=== PATIENT | male | born 1960 | race Caucasian/White ===

== ENCOUNTER 2017-12-06 07:08 | Day surgery (SDC) | payer OTHER ==
[2017-12-03 13:24] VITALS: BMI 31.3
[2017-12-06] MEDS ORDERED: LIDOCAINE HCL 2% (20ML MULTI-DOSE VIAL) NR ONE (08:07)
[2017-12-06] MEDS ORDERED: PROPOFOL 20 ML ONE ×2 (08:07)
[2017-12-06 08:46] VITALS: TEMP 97.9
[2017-12-06 09:34] VITALS: BP 130/78; PULSE 88
[2017-12-06 09:35] LABS: BASO % 0.7 % (0-2.0); EOS % 2.6 % (0-4.5); HEMATOCRIT 43.6 % (35.4-49); HEMOGLOBIN 14.8 GM/dL (11.7-16.9); MCH 27.8 pg (25.7-33.7); MCHC 33.8 g/dl (32.0-35.9); MEAN PLT VOLUME 8.8 fl (7.5-11.1); MONO % 8.1 % (3.8-10.2); NEUT % 68.6 % (42.8-82.8); PLATELET COUNT 303 K/MM3 (134-434); RBC 5.32 M/mm3 (4.00-5.60); RDW 12.9 % (11.9-15.9)
[2017-12-06] MEDS ORDERED: PANTOPRAZOLE 40 MG TABLET (FP) PO SCH (10:00)
[2017-12-06 10:33] LABS: INR 1.15 (0.82-1.09)
[2017-12-06 10:35] LABS: ALBUMIN 3.6 g/dl (3.4-5.0); ANION GAP 6 (8-16); BLOOD UREA NITROGEN 12 mg/dL (7-18); CALCIUM 8.8 mg/dL (8.5-10.1); CHLORIDE 102 mmol/L (98-107); CO2 32 mmol/L (21-32); GLUCOSE,RANDOM 103 mg/dL (74-106); POTASSIUM 3.7 mmol/L (3.5-5.1); SGOT/AST 19 U/L (15-37); SODIUM 140 mmol/L (136-145)
[2017-12-06 10:42] LABS: ALK PHOS 110 U/L (45-117); BILIRUBIN,TOTAL 0.8 mg/dL (0.2-1.0)
[2017-12-06 10:57] LABS: SGPT/ALT 18 U/L (12-78)
--- NOTE | 2017-12-07 11:52 | PATH ---
Surgical Pathology Report Patient Name: DUKE SWEENEY Med. Rec. #: [id number] /Age/Gender: 1960 (Age: 57) / M Account: [id number] Location: U-ENDOSCOPY Taken: 12/06/2017 Received: 12/06/2017 Reported: 12/07/2017 Physicians: Bishop Jimenez M.D. Specimen(s) Received A: BX ANTRUM B: BX DISTAL ESOPHAGEAL Clinical History Preoperative diagnosis: Dysphagia, weight loss Postoperative diagnosis: Antral gastritis, distal esophageal carcinoma, hiatal hernia Final Diagnosis A. STOMACH, ANTRUM, BIOPSY: MILD REACTIVE GASTROPATHY. IMMUNOSTAIN FOR H. PYLORI IS NEGATIVE. B. DISTAL ESOPHAGUS, BIOPSY: POORLY DIFFERENTIATED ADENOCARCINOMA. Comment: This case was discussed with Dr. Rothman at 11:40 AM on December 07, 2017. Assays for HER-2/pan, PD-L1, and mismatch repair protein analysis by immunohistochemistry are pending, and a report will follow. Electronically Signed Donell Mejia M.D. Addendum Reported: 12/09/2017 Addendum Diagnosis Results of Her2 (IHC) studies performed on block "B" at [place], [place] ([id number]) are as follows: Her2 IHC (EP3 from [employer], formerly known as [id number], using Tate Polymer Refine detection kit):3+ Positive PD-L1 (Keytruda) IHC, Clone 22C3 Pharm DX performed and interpreted at [place], [place] ([id number]) shows the following: RESULT: PD-L1 (Keytruda) CPS: 4 (PD-L1 Expression) Reference Range: CPS=Combined Positive Score ((#PD-L1 staining cells including tumor cells, lymphocytes and macrophages)/(Total # of viable tumor cells)) x 100 CPS <1 = No PD-L1 Expression CPS >= 1 up to maximum of 100: PD-L1 expression Immunohistochemical stains for MisMatch Repair Protein Analysis performed at [facility] in [place], [place] ([id number]) and interpreted at [facility] show the following: RESULTS: HMLH-1 INTACT NUCLEAR EXPRESSION HMSH-2 INTACT NUCLEAR EXPRESSION HMSH-6 INTACT NUCLEAR EXPRESSION PMS2 INTACT NUCLEAR EXPRESSION INTERPRETATION: No loss of nuclear expression of MMR proteins: low probability of microsatellite instability-high (MSI-H) Donell Mejia M.D. Gross Description A. Received in formalin, labeled "biopsy antrum" are 2 arevalo, irregular portions of soft tissue measuring 0.2 and 0.3 cm. in greatest dimension. The specimens are submitted in toto in one cassette. B. Received in formalin labeled "biopsy distal esophageal carcinoma," is a 0.7 x 0.4 x 0.2 cm aggregate of arevalo soft tissue fragments. The formalin is filtered and the specimen is entirely submitted in one cassette. 12/06/2017 [facility]12/06/2017
== END 2017-12-06 09:34 | disposition home or self-care (01) ==
LOC: JASU-ENDO 07:08
PROVIDERS: ATTEND Internal Medicine Gastroenterology
PROC: 0DB68ZX Excision of Stomach, Via Natural or Artificial Opening Endoscopic, Diagnostic (ICD-10-PCS; 2017-12-06)
PROC: 0DB38ZX Excision of Lower Esophagus, Via Natural or Artificial Opening Endoscopic, Diagnostic (ICD-10-PCS; principal; 2017-12-06 08:00)
DX: C15.5 Malignant neoplasm of lower third of esophagus (principal); R13.10 Dysphagia, unspecified; K29.70 Gastritis, unspecified, without bleeding; K44.9 Diaphragmatic hernia without obstruction or gangrene; E66.9 Obesity, unspecified; I10 Essential (primary) hypertension; G47.30 Sleep apnea, unspecified
CPT/HCPCS: 36415; 80053; 85025; 85610; 86140; 88305-TC; 88342-TC

== ENCOUNTER 2018-01-17 07:27 | Day surgery (SDC) | payer OTHER ==
[2018-01-17] MEDS ORDERED: PALONOSETRON HCL 0.25 MG/5 ML VIAL IVPUSH ONE (08:00)
[2018-01-17] MEDS ORDERED: DEXAMETHASONE INJECTION 20 MG, DIPHENHYDRAMINE 50 MG, RANITIDINE INJECTION 50 MG in SOD... IVPB ONE (08:00)
[2018-01-17] MEDS ORDERED: PACLITAXEL 102 MG in SODIUM CHLORIDE 250 ML IVPB ONE (08:30)
[2018-01-17] MEDS ORDERED: CARBOPLATIN IVPB ONE ×2 (09:30)
[2018-01-17] MEDS ORDERED: SODIUM CHLORIDE IVPB ONE ×2 (09:30)
[2018-01-17] MEDS ORDERED: SODIUM CHLORIDE 250 ML IV ONE (10:00)
[2018-01-17 11:02] LABS: BASO % 0.1 % (0-2.0); HEMATOCRIT 44.9 % (35.4-49); HEMOGLOBIN 15.1 GM/dL (11.7-16.9); LYMPH % 4.3 % (8-40); MCH 26.8 pg (25.7-33.7); MCHC 33.7 g/dl (32.0-35.9); MEAN CELL VOLUME 79.7 fl (80-96); MEAN PLT VOLUME 8.9 fl (7.5-11.1); MONO % 0.4 % (3.8-10.2); NEUT % 95.2 % (42.8-82.8); PLATELET COUNT 322 K/MM3 (134-434); RBC 5.63 M/mm3 (4.00-5.60); WHITE BLOOD COUNT 6.5 K/mm3 (4.0-10.0)
[2018-01-17 11:27] LABS: ALBUMIN 3.6 g/dl (3.4-5.0); ALK PHOS 113 U/L (45-117); ANION GAP 6 (8-16); BILIRUBIN,DIRECT 0.2 mg/dL (0.0-0.2); BLOOD UREA NITROGEN 13 mg/dL (7-18); CALCIUM 9.2 mg/dL (8.5-10.1); CHLORIDE 102 mmol/L (98-107); CO2 30 mmol/L (21-32); GLUCOSE,RANDOM 223 mg/dL (74-106); MAGNESIUM 2.1 mg/dL (1.8-2.4); POTASSIUM 4.1 mmol/L (3.5-5.1); SGOT/AST 17 U/L (15-37); SGPT/ALT 18 U/L (12-78); SODIUM 138 mmol/L (136-145); TOT PROT 7.4 g/dl (6.4-8.2)
[2018-01-17 18:53] VITALS: BP 129/76; PULSE 89; TEMP 98.2
== END 2018-01-17 16:30 | disposition home or self-care (01) ==
LOC: JONCCHEMO 07:27 → J7W 11:48 → JONCCHEMO 16:30
PROVIDERS: ATTEND Internal Medicine Hematology & Oncology
DX: Z51.11 Encounter for antineoplastic chemotherapy (principal); C15.9 Malignant neoplasm of esophagus, unspecified
CPT/HCPCS: 36415; 80053; 80076; 83735; 85025; 96361; 96367; 96375; 96413; 96417; J1100; J2469

== ENCOUNTER 2018-01-24 07:20 | Day surgery (SDC) | payer OTHER ==
[2018-01-24] MEDS ORDERED: PALONOSETRON HCL 0.25 MG/5 ML VIAL IVPUSH ONE (08:00)
[2018-01-24] MEDS ORDERED: DEXAMETHASONE INJECTION 20 MG, DIPHENHYDRAMINE 50 MG, RANITIDINE INJECTION 50 MG in SOD... IVPB ONE (08:00)
[2018-01-24] MEDS ORDERED: PACLITAXEL 102 MG in SODIUM CHLORIDE 250 ML IVPB ONE (08:30)
[2018-01-24] MEDS ORDERED: CARBOPLATIN IVPB ONE (09:30)
[2018-01-24] MEDS ORDERED: SODIUM CHLORIDE IVPB ONE (09:30)
[2018-01-24 09:34] LABS: BASO % 0.2 % (0-2.0); EOS % 0.2 % (0-4.5); HEMATOCRIT 46.8 % (35.4-49); HEMOGLOBIN 15.6 GM/dL (11.7-16.9); LYMPH % 3.9 % (8-40); MCH 26.6 pg (25.7-33.7); MCHC 33.3 g/dl (32.0-35.9); MEAN PLT VOLUME 8.8 fl (7.5-11.1); MONO % 0.8 % (3.8-10.2); NEUT % 94.9 % (42.8-82.8); PLATELET COUNT 289 K/MM3 (134-434); RBC 5.85 M/mm3 (4.00-5.60); RDW 12.9 % (11.9-15.9); WHITE BLOOD COUNT 4.5 K/mm3 (4.0-10.0)
[2018-01-24] MEDS ORDERED: SODIUM CHLORIDE 250 ML IV ONE (10:00)
[2018-01-24 10:09] LABS: ALBUMIN 3.8 g/dl (3.4-5.0); ANION GAP 7 (8-16); BILIRUBIN,DIRECT 0.3 mg/dL (0.0-0.2); BLOOD UREA NITROGEN 17 mg/dL (7-18); CALCIUM 9.1 mg/dL (8.5-10.1); CHLORIDE 100 mmol/L (98-107); CO2 30 mmol/L (21-32); CREATININE 1.1 mg/dL (0.7-1.3); GLUCOSE,RANDOM 149 mg/dL (74-106); MAGNESIUM 2.4 mg/dL (1.8-2.4); POTASSIUM 4.1 mmol/L (3.5-5.1); SGOT/AST 19 U/L (15-37); SGPT/ALT 21 U/L (12-78); SODIUM 137 mmol/L (136-145)
[2018-01-24 10:11] LABS: ALK PHOS 107 U/L (45-117); BILIRUBIN,TOTAL 1.4 mg/dL (0.2-1.0); TOT PROT 7.4 g/dl (6.4-8.2)
[2018-01-24 16:20] VITALS: BP 125/75; PULSE 78; TEMP 98
== END 2018-01-24 13:40 | disposition home or self-care (01) ==
LOC: JONCCHEMO 07:20 → J7W 10:03 → JONCCHEMO 13:40
PROVIDERS: ATTEND Internal Medicine Hematology & Oncology
DX: Z51.11 Encounter for antineoplastic chemotherapy (principal); C15.9 Malignant neoplasm of esophagus, unspecified
CPT/HCPCS: 36415; 80053; 80076; 83735; 85025; 96361; 96367; 96375; 96413; 96417; J1100; J2469

== ENCOUNTER 2018-02-01 07:58 | Day surgery (SDC) | payer OTHER ==
[2018-02-01] MEDS ORDERED: PALONOSETRON HCL 0.25 MG/5 ML VIAL IVPUSH ONE (08:00)
[2018-02-01] MEDS ORDERED: DEXAMETHASONE INJECTION 20 MG, DIPHENHYDRAMINE 50 MG, RANITIDINE INJECTION 50 MG in SOD... IVPB ONE (08:00)
[2018-02-01] MEDS ORDERED: PACLITAXEL 102 MG in SODIUM CHLORIDE 250 ML IVPB ONE (08:30)
[2018-02-01] MEDS ORDERED: SODIUM CHLORIDE IVPB ONE (09:30)
[2018-02-01] MEDS ORDERED: CARBOPLATIN IVPB ONE (09:30)
[2018-02-01 09:42] LABS: BASO % 0.6 % (0-2.0); EOS % 0.5 % (0-4.5); HEMATOCRIT 42.3 % (35.4-49); HEMOGLOBIN 14.7 GM/dL (11.7-16.9); LYMPH % 2.6 % (8-40); MCH 27.4 pg (25.7-33.7); MCHC 34.7 g/dl (32.0-35.9); MEAN CELL VOLUME 78.9 fl (80-96); MEAN PLT VOLUME 8.9 fl (7.5-11.1); MONO % 3.4 % (3.8-10.2); NEUT % 92.9 % (42.8-82.8); PLATELET COUNT 180 K/MM3 (134-434); RBC 5.36 M/mm3 (4.00-5.60); RDW 12.7 % (11.9-15.9); WHITE BLOOD COUNT 6.4 K/mm3 (4.0-10.0)
[2018-02-01] MEDS ORDERED: SODIUM CHLORIDE 250 ML IV ONE (10:00)
[2018-02-01 10:09] LABS: ALBUMIN 3.5 g/dl (3.4-5.0); ANION GAP 7 (8-16); BLOOD UREA NITROGEN 18 mg/dL (7-18); CALCIUM 8.6 mg/dL (8.5-10.1); CHLORIDE 99 mmol/L (98-107); CO2 31 mmol/L (21-32); CREATININE 0.9 mg/dL (0.7-1.3); GLUCOSE,RANDOM 109 mg/dL (74-106); POTASSIUM 3.2 mmol/L (3.5-5.1); SGOT/AST 27 U/L (15-37); SGPT/ALT 40 U/L (12-78); SODIUM 137 mmol/L (136-145)
[2018-02-01 10:11] LABS: ALK PHOS 100 U/L (45-117); BILIRUBIN,TOTAL 1.8 mg/dL (0.2-1.0); TOT PROT 6.7 g/dl (6.4-8.2)
[2018-02-01] MEDS ORDERED: POTASSIUM CHLORIDE TABS 20 MEQ TABLET.ER (FP) PO ONE (11:15)
[2018-02-01 11:30] LABS: BILIRUBIN,DIRECT 0.4 mg/dL (0.0-0.2); MAGNESIUM 2.2 mg/dL (1.8-2.4)
[2018-02-01 17:37] VITALS: TEMP 98.4
[2018-02-01 17:41] VITALS: BP 100/62; PULSE 80
== END 2018-02-01 15:00 | disposition home or self-care (01) ==
LOC: JONCCHEMO 07:58 → J7W 10:52 → JONCCHEMO 15:00
PROVIDERS: ATTEND Internal Medicine Hematology & Oncology
DX: Z51.11 Encounter for antineoplastic chemotherapy (principal); C15.9 Malignant neoplasm of esophagus, unspecified
CPT/HCPCS: 36415; 80053; 80076; 83735; 85025; 96361; 96375; 96413; 96417; J1100; J2469

== ENCOUNTER 2018-02-07 07:30 | Day surgery (SDC) | payer OTHER ==
[2018-02-07] MEDS ORDERED: DEXAMETHASONE INJECTION 20 MG, DIPHENHYDRAMINE 50 MG, RANITIDINE INJECTION 50 MG in SOD... IVPB ONE (08:00)
[2018-02-07] MEDS ORDERED: PACLITAXEL 102 MG in SODIUM CHLORIDE 250 ML IVPB ONE (08:30)
[2018-02-07] MEDS ORDERED: SODIUM CHLORIDE IVPB ONE (09:30)
[2018-02-07] MEDS ORDERED: CARBOPLATIN IVPB ONE (09:30)
[2018-02-07 09:57] LABS: BASO % 0.5 % (0-2.0); EOS % 0.4 % (0-4.5); HEMATOCRIT 42.4 % (35.4-49); HEMOGLOBIN 14.4 GM/dL (11.7-16.9); LYMPH % 2.7 % (8-40); MCH 27.1 pg (25.7-33.7); MEAN CELL VOLUME 79.8 fl (80-96); MONO % 4.5 % (3.8-10.2); NEUT % 91.9 % (42.8-82.8); PLATELET COUNT 214 K/MM3 (134-434); RBC 5.31 M/mm3 (4.00-5.60); WHITE BLOOD COUNT 4.6 K/mm3 (4.0-10.0)
[2018-02-07] MEDS ORDERED: SODIUM CHLORIDE 250 ML IV ONE (10:00)
[2018-02-07 10:59] LABS: ALBUMIN 3.3 g/dl (3.4-5.0); ANION GAP 6 (8-16); BLOOD UREA NITROGEN 17 mg/dL (7-18); CALCIUM 8.7 mg/dL (8.5-10.1); CHLORIDE 100 mmol/L (98-107); CO2 31 mmol/L (21-32); GLUCOSE,RANDOM 105 mg/dL (74-106); POTASSIUM 3.9 mmol/L (3.5-5.1); SODIUM 137 mmol/L (136-145)
[2018-02-07 11:03] LABS: ALK PHOS 90 U/L (45-117); BILIRUBIN,DIRECT 0.3 mg/dL (0.0-0.2); BILIRUBIN,TOTAL 1.3 mg/dL (0.2-1.0); CREATININE 0.9 mg/dL (0.7-1.3); SGOT/AST 29 U/L (15-37); SGPT/ALT 37 U/L (12-78); TOT PROT 6.6 g/dl (6.4-8.2)
[2018-02-07] MEDS: PALONOSETRON HCL 0.25 MG/5 ML VIAL IVPUSH ONE ×2 (11:15→11:17)
[2018-02-07 15:28] VITALS: TEMP 98.1
[2018-02-07 15:30] VITALS: BP 115/76; PULSE 93
[2018-02-07 16:45] LABS: URINE APPEARANCE CLEAR; URINE BILIRUBIN NEGATIVE (<2.0 mg/dL); URINE BLOOD NEGATIVE (NEGATIVE); URINE COLOR YELLOW; URINE GLUCOSE (UA) NEGATIVE (NEGATIVE); URINE KETONE NEGATIVE (NEGATIVE); URINE LEUK ESTERASE NEGATIVE (NEGATIVE); URINE NITRITE NEGATIVE (NEGATIVE); URINE PROTEIN NEGATIVE (NEGATIVE); URINE UROBILINOGEN NEGATIVE mg/dL (0.2-1.0)
== END 2018-02-07 15:20 | disposition home or self-care (01) ==
LOC: JONCCHEMO 07:30 → J7W 11:05 → JONCCHEMO 15:20
PROVIDERS: ATTEND Internal Medicine Hematology & Oncology
PROC: 3E03305 Introduction of Other Antineoplastic into Peripheral Vein, Percutaneous Approach (ICD-10-PCS; principal; 2018-02-07)
PROC: 3E033GC Introduction of Other Therapeutic Substance into Peripheral Vein, Percutaneous Approach (ICD-10-PCS; 2018-02-07)
PROC: 3E0337Z Introduction of Electrolytic and Water Balance Substance into Peripheral Vein, Percutaneous Approach (ICD-10-PCS; 2018-02-07)
DX: Z51.11 Encounter for antineoplastic chemotherapy (principal); C15.5 Malignant neoplasm of lower third of esophagus; K21.9 Gastro-esophageal reflux disease without esophagitis; E78.00 Pure hypercholesterolemia, unspecified; I10 Essential (primary) hypertension; L40.9 Psoriasis, unspecified
CPT/HCPCS: 36415; 80053; 80076; 81003; 83735; 85025; 87040; 87086; 96361; 96367; 96375; 96413; 96417; J1100; J2469

== ENCOUNTER 2018-02-14 07:27 | Day surgery (SDC) | payer OTHER ==
[2018-02-14 09:04] LABS: BASO % 0.9 % (0-2.0); EOS % 1.1 % (0-4.5); HEMATOCRIT 40.9 % (35.4-49); HEMOGLOBIN 14.1 GM/dL (11.7-16.9); LYMPH % 8.4 % (8-40); MCH 27.4 pg (25.7-33.7); MCHC 34.4 g/dl (32.0-35.9); MEAN CELL VOLUME 79.6 fl (80-96); MEAN PLT VOLUME 8.3 fl (7.5-11.1); MONO % 11.4 % (3.8-10.2); NEUT % 78.2 % (42.8-82.8); PLATELET COUNT 186 K/MM3 (134-434); RBC 5.14 M/mm3 (4.00-5.60); RDW 12.9 % (11.9-15.9); WHITE BLOOD COUNT 3.5 K/mm3 (4.0-10.0)
[2018-02-14] MEDS ORDERED: DEXAMETHASONE INJECTION 20 MG, DIPHENHYDRAMINE 50 MG, RANITIDINE INJECTION 50 MG in SOD... IVPB ONE (10:00)
[2018-02-14] MEDS ORDERED: PALONOSETRON HCL 0.25 MG/5 ML VIAL IVPUSH ONE (10:00)
[2018-02-14 10:01] LABS: BILIRUBIN,TOTAL 0.9 mg/dL (0.2-1.0); CHLORIDE 103 mmol/L (98-107); SODIUM 141 mmol/L (136-145); TOT PROT 6.7 g/dl (6.4-8.2)
[2018-02-14 10:19] LABS: ALBUMIN 3.4 g/dl (3.4-5.0); ALK PHOS 102 U/L (45-117); ANION GAP 7 (8-16); BILIRUBIN,DIRECT 0.3 mg/dL (0.0-0.2); BLOOD UREA NITROGEN 17 mg/dL (7-18); CO2 31 mmol/L (21-32); CREATININE 0.9 mg/dL (0.7-1.3); GLUCOSE,RANDOM 91 mg/dL (74-106); SGOT/AST 35 U/L (15-37); SGPT/ALT 57 U/L (12-78)
[2018-02-14 10:28] VITALS: TEMP 98
[2018-02-14] MEDS ORDERED: PACLITAXEL 102 MG in SODIUM CHLORIDE 250 ML IVPB ONE (10:30)
[2018-02-14] MEDS ORDERED: SODIUM CHLORIDE IVPB ONE (11:30)
[2018-02-14] MEDS ORDERED: CARBOPLATIN IVPB ONE (11:30)
[2018-02-14] MEDS ORDERED: SODIUM CHLORIDE 250 ML IV ONE (12:00)
[2018-02-14 15:51] VITALS: BP 99/62; PULSE 75
== END 2018-02-14 13:40 | disposition home or self-care (01) ==
LOC: JONCCHEMO 07:27 → J7W 10:00 → JONCCHEMO 13:40
PROVIDERS: ATTEND Internal Medicine Hematology & Oncology
DX: Z51.11 Encounter for antineoplastic chemotherapy (principal); C15.5 Malignant neoplasm of lower third of esophagus
CPT/HCPCS: 36415; 80048; 80076; 83735; 85025; 96361; 96367; 96375; 96413; 96417; J1100; J2469

== ENCOUNTER 2019-02-01 07:23 | Day surgery (SDC) | payer OTHER ==
[2019-01-31 18:23] VITALS: BMI 27.6
[2019-02-01 07:55] LABS: BASO % 0.8 % (0-2.0); EOS % 2.7 % (0-4.5); HEMATOCRIT 42.5 % (35.4-49); HEMOGLOBIN 14.1 GM/dL (11.7-16.9); MCH 27.8 pg (25.7-33.7); MCHC 33.2 g/dl (32.0-35.9); MEAN CELL VOLUME 83.6 fl (80-96); MEAN PLT VOLUME 8.5 fl (7.5-11.1); MONO % 9.8 % (3.8-10.2); NEUT % 76.7 % (42.8-82.8); PLATELET COUNT 208 K/MM3 (134-434); RBC 5.09 M/mm3 (4.00-5.60); RDW 12.6 % (11.9-15.9); WHITE BLOOD COUNT 7.4 K/mm3 (4.0-10.0)
[2019-02-01 08:09] LABS: INR 1.08 (0.83-1.09); PROTHROMBIN TIME (PATIENT) 12.7 SEC (9.7-13.0)
[2019-02-01 12:18] VITALS: BP 138/80; PULSE 70; TEMP 98.7
== END 2019-02-01 12:21 | disposition home or self-care (01) ==
LOC: JRADIR 07:23
PROVIDERS: ATTEND Internal Medicine Hematology & Oncology
PROC: 02HV33Z Insertion of Infusion Device into Superior Vena Cava, Percutaneous Approach (ICD-10-PCS; principal; 2019-02-01)
PROC: B518ZZA Fluoroscopy of Superior Vena Cava, Guidance (ICD-10-PCS; 2019-02-01)
DX: C15.9 Malignant neoplasm of esophagus, unspecified (principal)
CPT/HCPCS: 36561; C1788; 36415; 85025; 85610

== ENCOUNTER 2019-02-02 06:19 | Day surgery (SDC) | payer OTHER ==
[2019-02-02 09:45] LABS: BASO % 0.2 % (0-2.0); EOS % 0.1 % (0-4.5); HEMATOCRIT 45.6 % (35.4-49); HEMOGLOBIN 15.1 GM/dL (11.7-16.9); LYMPH % 7.1 % (8-40); MCH 27.8 pg (25.7-33.7); MCHC 33.2 g/dl (32.0-35.9); MEAN CELL VOLUME 83.8 fl (80-96); MEAN PLT VOLUME 8.9 fl (7.5-11.1); MONO % 0.3 % (3.8-10.2); NEUT % 92.3 % (42.8-82.8); PLATELET COUNT 229 K/MM3 (134-434); RBC 5.44 M/mm3 (4.00-5.60); RDW 12.6 % (11.9-15.9); WHITE BLOOD COUNT 5.4 K/mm3 (4.0-10.0)
[2019-02-02] MEDS ORDERED: DEXAMETHASONE SODIUM PHOSPHATE 20 MG, DIPHENHYDRAMINE 50 MG, RANITIDINE INJECTION 50 MG... IVPB ONE (10:00)
[2019-02-02] MEDS ORDERED: PALONOSETRON HCL 0.25 MG/5 ML VIAL IVPUSH ONE (10:00)
[2019-02-02 10:16] LABS: ALBUMIN 3.6 g/dl (3.4-5.0); BILIRUBIN,DIRECT 0.2 mg/dL (0.0-0.2); BILIRUBIN,TOTAL 0.7 mg/dL (0.2-1); CALCIUM 9.2 mg/dL (8.5-10.1); MAGNESIUM 2.4 mg/dL (1.8-2.4); POTASSIUM 4.7 mmol/L (3.5-5.1)
[2019-02-02] MEDS ORDERED: PACLITAXEL 156 MG in SODIUM CHLORIDE 250 ML IVPB ONE (10:30)
[2019-02-02] MEDS ORDERED: SODIUM CHLORIDE IVPB ONE (11:30)
[2019-02-02] MEDS ORDERED: CARBOPLATIN IVPB ONE (11:30)
[2019-02-02 12:10] LABS: ANISOCYTOSIS 0; MACROCYTOSIS 0; PLATELET ESTIMATE NORMAL
[2019-02-02] MEDS ORDERED: INSULIN (NOVOLOG) ASPART 100 UNITS/ML 10ML VIAL SQ ONE (14:15)
[2019-02-02] MEDS ORDERED: INSULIN SLIDING SCALE (NOVOLOG) 1 VIAL SQ ONE (14:15)
[2019-02-02] MEDS ORDERED: PORTA CATH FLUSH 10 ML IVPUSH ONE (16:35)
[2019-02-02 16:36] VITALS: BP 124/79; PULSE 78
[2019-02-02 16:55] VITALS: TEMP 98.5
== END 2019-02-02 14:40 | disposition home or self-care (01) ==
LOC: JONCCHEMO 06:19 → J7W 09:48 → JONCCHEMO 14:40
PROVIDERS: ATTEND Internal Medicine Hematology & Oncology
DX: Z51.11 Encounter for antineoplastic chemotherapy (principal); C15.5 Malignant neoplasm of lower third of esophagus
CPT/HCPCS: 36415; 80048; 80076; 82962; 83735; 85025; 96367; 96375; 96413; 96417; J2469

== ENCOUNTER 2019-02-09 07:19 | Day surgery (SDC) | payer OTHER ==
[2019-02-09] MEDS ORDERED: PALONOSETRON HCL 0.25 MG/5 ML VIAL IVPUSH ONE (10:00)
[2019-02-09] MEDS ORDERED: DEXAMETHASONE SODIUM PHOSPHATE 20 MG, DIPHENHYDRAMINE 50 MG, RANITIDINE INJECTION 50 MG... IVPB ONE (10:00)
[2019-02-09 10:13] LABS: BASO % 0.2 % (0-2.0); EOS % 0.4 % (0-4.5); HEMATOCRIT 41.8 % (35.4-49); LYMPH % 5.2 % (8-40); MCH 27.6 pg (25.7-33.7); MCHC 33.5 g/dl (32.0-35.9); MEAN CELL VOLUME 82.3 fl (80-96); NEUT % 93.2 % (42.8-82.8); PLATELET COUNT 207 K/MM3 (134-434); RBC 5.07 M/mm3 (4.00-5.60); RDW 12.8 % (11.9-15.9); WHITE BLOOD COUNT 6.9 K/mm3 (4.0-10.0)
[2019-02-09] MEDS ORDERED: PACLITAXEL 156 MG in SODIUM CHLORIDE 250 ML IVPB ONE (10:30)
[2019-02-09 10:48] LABS: ALBUMIN 3.7 g/dl (3.4-5.0); BILIRUBIN,DIRECT 0.1 mg/dL (0.0-0.2); BILIRUBIN,TOTAL 0.8 mg/dL (0.2-1); CREATININE 0.8 mg/dL (0.55-1.3); MAGNESIUM 2.4 mg/dL (1.8-2.4); POTASSIUM 4.6 mmol/L (3.5-5.1); TOT PROT 7.1 g/dl (6.4-8.2)
[2019-02-09 11:08] LABS: ANISOCYTOSIS 0; MACROCYTOSIS 0; PLATELET ESTIMATE NORMAL
[2019-02-09] MEDS ORDERED: SODIUM CHLORIDE IVPB ONE (11:30)
[2019-02-09] MEDS ORDERED: CARBOPLATIN IVPB ONE (11:30)
[2019-02-09 19:09] VITALS: BP 132/80; PULSE 72; TEMP 98.5
== END 2019-02-09 14:30 | disposition home or self-care (01) ==
LOC: JONCCHEMO 07:19 → J7W 11:12 → JONCCHEMO 14:30
PROVIDERS: ATTEND Internal Medicine Hematology & Oncology
DX: Z51.11 Encounter for antineoplastic chemotherapy (principal); C15.5 Malignant neoplasm of lower third of esophagus
CPT/HCPCS: 36415; 80048; 80076; 83735; 85025; 96367; 96375; 96413; 96417; J2469

== ENCOUNTER 2019-02-16 05:47 | Day surgery (SDC) | payer OTHER ==
[2019-02-16] MEDS ORDERED: DEXAMETHASONE SODIUM PHOSPHATE 10 MG, DIPHENHYDRAMINE 50 MG, RANITIDINE INJECTION 50 MG... IVPB ONE (09:00)
[2019-02-16] MEDS ORDERED: DEXAMETHASONE SODIUM PHOSPHATE 20 MG, DIPHENHYDRAMINE 50 MG, RANITIDINE INJECTION 50 MG... IVPB ONE (09:00)
[2019-02-16] MEDS ORDERED: PALONOSETRON HCL 0.25 MG/5 ML VIAL IVPUSH ONE (09:00)
[2019-02-16] MEDS ORDERED: PACLITAXEL 156 MG in SODIUM CHLORIDE 250 ML IVPB ONE (09:30)
[2019-02-16 09:49] LABS: BASO % 0.8 % (0-2.0); EOS % 1.6 % (0-4.5); HEMATOCRIT 41.6 % (35.4-49); HEMOGLOBIN 13.9 GM/dL (11.7-16.9); LYMPH % 16.2 % (8-40); MCH 27.5 pg (25.7-33.7); MCHC 33.4 g/dl (32.0-35.9); MEAN CELL VOLUME 82.2 fl (80-96); MEAN PLT VOLUME 8.7 fl (7.5-11.1); MONO % 8.8 % (3.8-10.2); NEUT % 72.6 % (42.8-82.8); RBC 5.06 M/mm3 (4.00-5.60); RDW 12.5 % (11.9-15.9); WHITE BLOOD COUNT 3.8 K/mm3 (4.0-10.0)
[2019-02-16 09:58] LABS: PLATELET COUNT 248 K/MM3 (134-434)
[2019-02-16 10:14] LABS: ALBUMIN 3.8 g/dl (3.4-5.0); BILIRUBIN,DIRECT 0.1 mg/dL (0.0-0.2); BILIRUBIN,TOTAL 0.7 mg/dL (0.2-1); BLOOD UREA NITROGEN 19.3 mg/dL (7-18); CALCIUM 9.1 mg/dL (8.5-10.1); CREATININE 0.9 mg/dL (0.55-1.3); MAGNESIUM 2.3 mg/dL (1.8-2.4); POTASSIUM 4.6 mmol/L (3.5-5.1); TOT PROT 6.9 g/dl (6.4-8.2)
[2019-02-16] MEDS ORDERED: CARBOPLATIN IVPB ONE (10:30)
[2019-02-16] MEDS ORDERED: SODIUM CHLORIDE IVPB ONE (10:30)
[2019-02-16 17:25] VITALS: TEMP 97
[2019-02-16 17:36] VITALS: BP 121/79; PULSE 72
[2019-02-16] MEDS ORDERED: PORTA CATH FLUSH 10 ML IVPUSH ONE (17:36)
== END 2019-02-16 13:50 | disposition home or self-care (01) ==
LOC: JONCCHEMO 05:47 → J7W 10:05 → JONCCHEMO 13:50
PROVIDERS: ATTEND Internal Medicine Hematology & Oncology
DX: Z51.11 Encounter for antineoplastic chemotherapy (principal); C15.5 Malignant neoplasm of lower third of esophagus
CPT/HCPCS: 36415; 80048; 80076; 83735; 85025; 96367; 96375; 96413; 96417; J2469

== ENCOUNTER 2019-02-23 06:37 | Day surgery (SDC) | payer OTHER ==
[2019-02-23] MEDS ORDERED: DEXAMETHASONE SODIUM PHOSPHATE 20 MG, DIPHENHYDRAMINE 50 MG, RANITIDINE INJECTION 50 MG... IVPB ONE (09:00)
[2019-02-23] MEDS ORDERED: PALONOSETRON HCL 0.25 MG/5 ML VIAL IVPUSH ONE (09:00)
[2019-02-23 09:01] LABS: BASO % 1.1 % (0-2.0); EOS % 1.3 % (0-4.5); HEMATOCRIT 39.2 % (35.4-49); HEMOGLOBIN 13.3 GM/dL (11.7-16.9); LYMPH % 18.6 % (8-40); MCH 27.9 pg (25.7-33.7); MEAN CELL VOLUME 81.9 fl (80-96); MEAN PLT VOLUME 8.4 fl (7.5-11.1); MONO % 9.7 % (3.8-10.2); NEUT % 69.3 % (42.8-82.8); PLATELET COUNT 241 K/MM3 (134-434); RBC 4.78 M/mm3 (4.00-5.60); RDW 12.8 % (11.9-15.9); WHITE BLOOD COUNT 4.3 K/mm3 (4.0-10.0)
[2019-02-23] MEDS ORDERED: PACLITAXEL 156 MG in SODIUM CHLORIDE 250 ML IVPB ONE (09:30)
[2019-02-23 09:32] LABS: ALBUMIN 3.6 g/dl (3.4-5.0); BILIRUBIN,DIRECT 0.1 mg/dL (0.0-0.2); BILIRUBIN,TOTAL 0.6 mg/dL (0.2-1); BLOOD UREA NITROGEN 17.5 mg/dL (7-18); CREATININE 0.9 mg/dL (0.55-1.3); MAGNESIUM 2.3 mg/dL (1.8-2.4); POTASSIUM 4.4 mmol/L (3.5-5.1); TOT PROT 6.6 g/dl (6.4-8.2)
[2019-02-23] MEDS ORDERED: CARBOPLATIN IVPB ONE (10:30)
[2019-02-23] MEDS ORDERED: SODIUM CHLORIDE IVPB ONE (10:30)
[2019-02-23 16:01] VITALS: BP 126/72; TEMP 98.5
[2019-02-23 16:15] VITALS: PULSE 60
[2019-02-23] MEDS ORDERED: PORTA CATH FLUSH 10 ML IVPUSH ONE (16:15)
== END 2019-02-23 13:15 | disposition home or self-care (01) ==
LOC: JONCCHEMO 06:37 → J7W 10:09 → JONCCHEMO 13:15
PROVIDERS: ATTEND Internal Medicine Hematology & Oncology
DX: Z51.11 Encounter for antineoplastic chemotherapy (principal); C15.5 Malignant neoplasm of lower third of esophagus
CPT/HCPCS: 36415; 80048; 80076; 83735; 85025; 96367; 96375; 96413; 96417; J2469

== ENCOUNTER 2019-03-02 07:18 | Day surgery (SDC) | payer OTHER ==
[2019-03-02] MEDS ORDERED: DEXAMETHASONE SODIUM PHOSPHATE 20 MG, DIPHENHYDRAMINE 50 MG, RANITIDINE INJECTION 50 MG... IVPB ONE (09:00)
[2019-03-02] MEDS ORDERED: PALONOSETRON HCL 0.25 MG/5 ML VIAL IVPUSH ONE (09:00)
[2019-03-02] MEDS ORDERED: PACLITAXEL 156 MG in SODIUM CHLORIDE 250 ML IVPB ONE (09:30)
[2019-03-02 09:39] LABS: BASO % 1.1 % (0-2.0); HEMATOCRIT 37.2 % (35.4-49); HEMOGLOBIN 12.7 GM/dL (11.7-16.9); MCHC 34.2 g/dl (32.0-35.9); MEAN CELL VOLUME 81.9 fl (80-96); MEAN PLT VOLUME 8.7 fl (7.5-11.1); MONO % 7.2 % (3.8-10.2); NEUT % 69.7 % (42.8-82.8); PLATELET COUNT 186 K/MM3 (134-434); RBC 4.55 M/mm3 (4.00-5.60); RDW 12.9 % (11.9-15.9); WHITE BLOOD COUNT 4.2 K/mm3 (4.0-10.0)
[2019-03-02 10:04] LABS: ALBUMIN 3.7 g/dl (3.4-5.0); BILIRUBIN,DIRECT 0.1 mg/dL (0.0-0.2); BILIRUBIN,TOTAL 0.6 mg/dL (0.2-1); BLOOD UREA NITROGEN 17.3 mg/dL (7-18); CREATININE 0.9 mg/dL (0.55-1.3); POTASSIUM 4.8 mmol/L (3.5-5.1); TOT PROT 6.8 g/dl (6.4-8.2); URIC ACID 5.2 mg/dL (2.6-7.2)
[2019-03-02] MEDS ORDERED: SODIUM CHLORIDE IVPB ONE (10:30)
[2019-03-02] MEDS ORDERED: CARBOPLATIN IVPB ONE (10:30)
[2019-03-02 15:50] VITALS: TEMP 98.8
[2019-03-02] MEDS ORDERED: PORTA CATH FLUSH 10 ML IVPUSH ONE (15:50)
[2019-03-02 15:51] VITALS: BP 129/77; PULSE 69
== END 2019-03-02 13:45 | disposition home or self-care (01) ==
LOC: JONCCHEMO 07:18 → J7W 10:07 → JONCCHEMO 13:45
PROVIDERS: ATTEND Internal Medicine Hematology & Oncology
DX: Z51.11 Encounter for antineoplastic chemotherapy (principal); C15.5 Malignant neoplasm of lower third of esophagus
CPT/HCPCS: 36415; 80048; 80076; 84550; 85025; 96367; 96375; 96413; 96417; J2469

== ENCOUNTER 2019-03-08 07:18 | Day surgery (SDC) | payer OTHER ==
[2019-03-08] MEDS ORDERED: PALONOSETRON HCL 0.25 MG/5 ML VIAL IVPUSH ONE (09:00)
[2019-03-08] MEDS ORDERED: DEXAMETHASONE SODIUM PHOSPHATE 20 MG, DIPHENHYDRAMINE 50 MG, RANITIDINE INJECTION 50 MG... IVPB ONE (09:00)
[2019-03-08] MEDS ORDERED: PACLITAXEL 156 MG in SODIUM CHLORIDE 250 ML IVPB ONE (09:30)
[2019-03-08] MEDS ORDERED: SODIUM CHLORIDE IVPB ONE (10:30)
[2019-03-08] MEDS ORDERED: CARBOPLATIN IVPB ONE (10:30)
[2019-03-08 11:03] LABS: CALCIUM 8.6 mg/dL (8.5-10.1); CREATININE 0.8 mg/dL (0.55-1.3); POTASSIUM 4.3 mmol/L (3.5-5.1)
[2019-03-08 11:27] LABS: ALBUMIN 3.4 g/dl (3.4-5.0); BILIRUBIN,DIRECT 0.2 mg/dL (0.0-0.2); BILIRUBIN,TOTAL 0.9 mg/dL (0.2-1); MAGNESIUM 2.1 mg/dL (1.8-2.4); TOT PROT 6.2 g/dl (6.4-8.2)
[2019-03-08 16:35] VITALS: TEMP 98.4
[2019-03-08] MEDS ORDERED: PORTA CATH FLUSH 10 ML IVPUSH ONE (16:44)
[2019-03-08 17:01] VITALS: BP 141/93; PULSE 96
== END 2019-03-08 14:35 | disposition home or self-care (01) ==
LOC: JONCCHEMO 07:18 → J7W 09:45 → JONCCHEMO 14:35
PROVIDERS: ATTEND Internal Medicine Hematology & Oncology
DX: Z51.11 Encounter for antineoplastic chemotherapy (principal); C15.5 Malignant neoplasm of lower third of esophagus
CPT/HCPCS: 36415; 80048; 80076; 82378; 83735; 96367; 96375; 96413; 96417; J2469

== ENCOUNTER 2019-04-04 05:58 | Day surgery (SDC) | payer OTHER ==
[2019-04-04 09:00] LABS: BASO % 1.1 % (0-2.0); EOS % 1.9 % (0-4.5); HEMATOCRIT 37.6 % (35.4-49); LYMPH % 19.4 % (8-40); MCH 29.5 pg (25.7-33.7); MCHC 34.5 g/dl (32.0-35.9); MEAN CELL VOLUME 85.4 fl (80-96); MEAN PLT VOLUME 8.1 fl (7.5-11.1); MONO % 10.4 % (3.8-10.2); NEUT % 67.2 % (42.8-82.8); PLATELET COUNT 211 K/MM3 (134-434); RBC 4.41 M/mm3 (4.00-5.60); RDW 19.1 % (11.9-15.9)
[2019-04-04 09:28] LABS: ALBUMIN 3.5 g/dl (3.4-5.0); BILIRUBIN,DIRECT 0.2 mg/dL (0.0-0.2); BILIRUBIN,TOTAL 0.7 mg/dL (0.2-1); BLOOD UREA NITROGEN 18.1 mg/dL (7-18); CREATININE 0.8 mg/dL (0.55-1.3); MAGNESIUM 2.3 mg/dL (1.8-2.4); TOT PROT 6.5 g/dl (6.4-8.2)
[2019-04-04] MEDS ORDERED: PALONOSETRON HCL 0.25 MG/5 ML VIAL IVPUSH ONE (10:00)
[2019-04-04] MEDS ORDERED: DEXAMETHASONE SODIUM PHOSPHATE 20 MG in SODIUM CHLORIDE 50 ML IVPB ONE (10:00)
[2019-04-04] MEDS ORDERED: OXALIPLATIN 160 MG in DEXTROSE 5%-WATER - 500 ML IV ONE (10:30)
[2019-04-04] MEDS ORDERED: DEXTROSE 5% IVPB ONE (10:30)
[2019-04-04] MEDS ORDERED: WATER IVPB ONE (10:30)
[2019-04-04] MEDS ORDERED: LEUCOVORIN IVPB ONE (10:30)
[2019-04-04] MEDS ORDERED: FLUOROURACIL 2,500 MG/50 ML VIAL IVPUSH ONE (12:30)
[2019-04-04] MEDS ORDERED: FLUOROURACIL 3,000 MG in SODIUM CHLORIDE 32 ML CP ONE (12:45)
[2019-04-04 16:48] VITALS: BP 138/90; PULSE 92; TEMP 98.2
== END 2019-04-04 15:10 | disposition home or self-care (01) ==
LOC: JONCCHEMO 05:58 → J7W 10:29 → JONCCHEMO 15:10
PROVIDERS: ATTEND Internal Medicine Hematology & Oncology
PROC: 3E04305 Introduction of Other Antineoplastic into Central Vein, Percutaneous Approach (ICD-10-PCS; principal; 2019-04-04)
PROC: 3E04305 Introduction of Other Antineoplastic into Central Vein, Percutaneous Approach (ICD-10-PCS; 2019-04-04)
PROC: 3E043GC Introduction of Other Therapeutic Substance into Central Vein, Percutaneous Approach (ICD-10-PCS; 2019-04-04)
DX: Z51.11 Encounter for antineoplastic chemotherapy (principal); C15.5 Malignant neoplasm of lower third of esophagus; I10 Essential (primary) hypertension; E78.00 Pure hypercholesterolemia, unspecified; L40.9 Psoriasis, unspecified; K21.9 Gastro-esophageal reflux disease without esophagitis
CPT/HCPCS: 36415; 80048; 80076; 83735; 85025; 96366; 96367; 96375; 96409; 96413; 96415; 96417; G0498; J2469; J9263

== ENCOUNTER 2019-04-06 05:40 | Day surgery (SDC) | payer OTHER ==
[2019-04-06 16:33] VITALS: BP 136/72; PULSE 80; TEMP 97.6
[2019-04-06] MEDS ORDERED: PORTA CATH FLUSH 10 ML IVPUSH ONE (16:33)
== END 2019-04-06 13:45 | disposition home or self-care (01) ==
LOC: JONCCHEMO 05:40 → J7W 12:35 → JONCCHEMO 13:45
PROVIDERS: ATTEND Internal Medicine Hematology & Oncology
PROC: 2W54XYZ Removal of Other Device on Chest Wall (ICD-10-PCS; principal; 2019-04-06)
DX: Z53.8 Procedure and treatment not carried out for other reasons (principal)

== ENCOUNTER 2019-04-18 07:20 | Day surgery (SDC) | payer OTHER ==
[2019-04-18 08:55] LABS: BASO % 0.7 % (0-2.0); HEMATOCRIT 36.4 % (35.4-49); HEMOGLOBIN 12.6 GM/dL (11.7-16.9); LYMPH % 17.6 % (8-40); MCHC 34.7 g/dl (32.0-35.9); MEAN CELL VOLUME 86.5 fl (80-96); MEAN PLT VOLUME 7.6 fl (7.5-11.1); MONO % 13.2 % (3.8-10.2); NEUT % 64.5 % (42.8-82.8); PLATELET COUNT 187 K/MM3 (134-434); RBC 4.21 M/mm3 (4.00-5.60); RDW 18.5 % (11.9-15.9); WHITE BLOOD COUNT 4.2 K/mm3 (4.0-10.0)
[2019-04-18 09:21] LABS: ALBUMIN 3.6 g/dl (3.4-5.0); BILIRUBIN,DIRECT 0.2 mg/dL (0.0-0.2); BILIRUBIN,TOTAL 0.6 mg/dL (0.2-1); BLOOD UREA NITROGEN 16.7 mg/dL (7-18); MAGNESIUM 2.3 mg/dL (1.8-2.4); POTASSIUM 4.4 mmol/L (3.5-5.1); TOT PROT 6.7 g/dl (6.4-8.2)
[2019-04-18] MEDS ORDERED: DEXAMETHASONE SODIUM PHOSPHATE 20 MG in SODIUM CHLORIDE 50 ML IVPB ONE (09:30)
[2019-04-18] MEDS ORDERED: PALONOSETRON HCL 0.25 MG/5 ML VIAL IVPUSH ONE (09:30)
[2019-04-18] MEDS ORDERED: LEUCOVORIN IVPB ONE (10:00)
[2019-04-18] MEDS ORDERED: OXALIPLATIN 160 MG in DEXTROSE 5%-WATER - 500 ML IV ONE (10:00)
[2019-04-18] MEDS ORDERED: DEXTROSE 5% IVPB ONE (10:00)
[2019-04-18] MEDS ORDERED: WATER IVPB ONE (10:00)
[2019-04-18] MEDS ORDERED: FLUOROURACIL 500 MG/10 ML VIAL IVPUSH ONE (12:00)
[2019-04-18] MEDS ORDERED: FLUOROURACIL 3,000 MG in SODIUM CHLORIDE 32 ML CP ONE (12:15)
[2019-04-18 15:40] VITALS: BP 144/90; PULSE 73; TEMP 97.7
== END 2019-04-18 14:45 | disposition home or self-care (01) ==
LOC: JONCCHEMO 07:20 → JERBED 10:45 → J7W 10:46 → JONCCHEMO 14:45
PROVIDERS: ATTEND Internal Medicine Hematology & Oncology
DX: Z51.11 Encounter for antineoplastic chemotherapy (principal); C15.5 Malignant neoplasm of lower third of esophagus
CPT/HCPCS: 36415; 80048; 80076; 83735; 85025; 96366; 96367; 96375; 96409; 96411; 96413; 96415; 96417; G0498; J2469; J9190; J9263

== ENCOUNTER 2019-04-20 07:23 | Day surgery (SDC) | payer OTHER ==
[2019-04-20 18:02] VITALS: BP 119/70; PULSE 75; TEMP 98.8
[2019-04-20] MEDS ORDERED: PORTA CATH FLUSH 10 ML IVPUSH ONE (18:02)
== END 2019-04-20 12:20 | disposition home or self-care (01) ==
LOC: JONCCHEMO 07:23 → J7W 12:08 → JONCCHEMO 12:20
PROVIDERS: ATTEND Internal Medicine Hematology & Oncology
DX: Z53.8 Procedure and treatment not carried out for other reasons (principal)

== ENCOUNTER 2019-05-02 07:13 | Day surgery (SDC) | payer OTHER ==
[2019-05-02 09:05] LABS: BASO % 1.1 % (0-2.0); EOS % 4.4 % (0-4.5); HEMATOCRIT 37.7 % (35.4-49); HEMOGLOBIN 12.9 GM/dL (11.7-16.9); LYMPH % 14.8 % (8-40); MCH 29.5 pg (25.7-33.7); MCHC 34.3 g/dl (32.0-35.9); MEAN PLT VOLUME 7.6 fl (7.5-11.1); NEUT % 67.7 % (42.8-82.8); PLATELET COUNT 154 K/MM3 (134-434); RBC 4.38 M/mm3 (4.00-5.60); RDW 16.9 % (11.9-15.9); WHITE BLOOD COUNT 4.8 K/mm3 (4.0-10.0)
[2019-05-02] MEDS ORDERED: DEXAMETHASONE SODIUM PHOSPHATE 20 MG in SODIUM CHLORIDE 50 ML IVPB ONE (09:30)
[2019-05-02] MEDS ORDERED: PALONOSETRON HCL 0.25 MG/5 ML VIAL IVPUSH ONE (09:30)
[2019-05-02 09:39] LABS: ALBUMIN 3.6 g/dl (3.4-5.0); BILIRUBIN,DIRECT 0.2 mg/dL (0.0-0.2); BILIRUBIN,TOTAL 0.6 mg/dL (0.2-1); BLOOD UREA NITROGEN 17.5 mg/dL (7-18); CALCIUM 9.3 mg/dL (8.5-10.1); CREATININE 0.9 mg/dL (0.55-1.3); MAGNESIUM 2.6 mg/dL (1.8-2.4); POTASSIUM 4.8 mmol/L (3.5-5.1); TOT PROT 6.6 g/dl (6.4-8.2)
[2019-05-02] MEDS ORDERED: WATER IVPB ONE (10:00)
[2019-05-02] MEDS ORDERED: OXALIPLATIN 160 MG in DEXTROSE 5%-WATER - 500 ML IV ONE (10:00)
[2019-05-02] MEDS ORDERED: DEXTROSE 5% IVPB ONE (10:00)
[2019-05-02] MEDS ORDERED: LEUCOVORIN IVPB ONE (10:00)
[2019-05-02] MEDS ORDERED: FLUOROURACIL 500 MG/10 ML VIAL IVPUSH ONE (12:00)
[2019-05-02] MEDS ORDERED: FLUOROURACIL 3,000 MG in SODIUM CHLORIDE 32 ML CP ONE (12:15)
[2019-05-02 17:16] VITALS: TEMP 97.4
[2019-05-02] MEDS ORDERED: PORTA CATH FLUSH 10 ML IVPUSH ONE (17:16)
[2019-05-02 17:20] VITALS: BP 134/76; PULSE 58
== END 2019-05-02 15:30 | disposition home or self-care (01) ==
LOC: JONCCHEMO 07:13 → J7W 11:10 → JONCCHEMO 15:30
PROVIDERS: ATTEND Internal Medicine Hematology & Oncology
DX: Z51.11 Encounter for antineoplastic chemotherapy (principal); C15.5 Malignant neoplasm of lower third of esophagus
CPT/HCPCS: 36415; 80048; 80076; 83735; 85025; 96366; 96367; 96375; 96409; 96411; 96413; 96415; 96417; G0498; J2469; J9190; J9263

== ENCOUNTER 2019-05-04 07:04 | Day surgery (SDC) | payer OTHER ==
[2019-05-04 13:58] VITALS: BP 123/82; PULSE 85; TEMP 98.2
[2019-05-04] MEDS ORDERED: PORTA CATH FLUSH 10 ML IVPUSH ONE (13:58)
== END 2019-05-04 13:40 | disposition home or self-care (01) ==
LOC: JONCCHEMO 07:04 → J7W 13:15 → JONCCHEMO 13:40
PROVIDERS: ATTEND Internal Medicine Hematology & Oncology
PROC: 2W54XYZ Removal of Other Device on Chest Wall (ICD-10-PCS; principal; 2019-05-04)
DX: Z53.8 Procedure and treatment not carried out for other reasons (principal)

== ENCOUNTER 2019-05-16 05:53 | Day surgery (SDC) | payer OTHER ==
[2019-05-16 08:40] LABS: BASO % 0.9 % (0-2.0); EOS % 7.5 % (0-4.5); HEMATOCRIT 37.3 % (35.4-49); HEMOGLOBIN 12.8 GM/dL (11.7-16.9); LYMPH % 12.7 % (8-40); MCH 29.7 pg (25.7-33.7); MCHC 34.3 g/dl (32.0-35.9); MEAN CELL VOLUME 86.8 fl (80-96); MONO % 10.3 % (3.8-10.2); NEUT % 68.6 % (42.8-82.8); PLATELET COUNT 114 K/MM3 (134-434); RDW 15.7 % (11.9-15.9); WHITE BLOOD COUNT 4.2 K/mm3 (4.0-10.0)
[2019-05-16 09:04] LABS: ALBUMIN 3.6 g/dl (3.4-5.0); BILIRUBIN,DIRECT 0.2 mg/dL (0.0-0.2); BILIRUBIN,TOTAL 0.9 mg/dL (0.2-1); BLOOD UREA NITROGEN 14.2 mg/dL (7-18); CALCIUM 9.2 mg/dL (8.5-10.1); CREATININE 0.9 mg/dL (0.55-1.3); MAGNESIUM 2.4 mg/dL (1.8-2.4); POTASSIUM 4.2 mmol/L (3.5-5.1); TOT PROT 6.4 g/dl (6.4-8.2)
[2019-05-16] MEDS ORDERED: PALONOSETRON HCL 0.25 MG/5 ML VIAL IVPUSH ONE (10:00)
[2019-05-16] MEDS ORDERED: DEXAMETHASONE SODIUM PHOSPHATE 20 MG in SODIUM CHLORIDE 50 ML IVPB ONE (10:00)
[2019-05-16] MEDS ORDERED: WATER IVPB ONE (10:30)
[2019-05-16] MEDS ORDERED: OXALIPLATIN 160 MG in DEXTROSE 5%-WATER - 500 ML IV ONE (10:30)
[2019-05-16] MEDS ORDERED: DEXTROSE 5% IVPB ONE (10:30)
[2019-05-16] MEDS ORDERED: LEUCOVORIN IVPB ONE (10:30)
[2019-05-16] MEDS ORDERED: FLUOROURACIL 2,500 MG/50 ML VIAL IVPUSH ONE (12:30)
[2019-05-16] MEDS ORDERED: FLUOROURACIL 3,000 MG in SODIUM CHLORIDE 32 ML CP ONE (12:45)
[2019-05-16 15:17] VITALS: BP 134/78; PULSE 64; TEMP 98.5
== END 2019-05-16 14:00 | disposition home or self-care (01) ==
LOC: JONCCHEMO 05:53 → J7W 09:57 → JONCCHEMO 14:00
PROVIDERS: ATTEND Internal Medicine Hematology & Oncology
DX: Z51.11 Encounter for antineoplastic chemotherapy (principal); C15.5 Malignant neoplasm of lower third of esophagus
CPT/HCPCS: 36415; 80048; 80061; 80076; 82533; 83036; 83615; 83721; 83735; 85025; 96366; 96367; 96375; 96409; 96411; 96413; 96415; 96417; G0498; J2469; J9263

== ENCOUNTER 2019-05-18 05:37 | Day surgery (SDC) | payer OTHER | END 2019-05-18 12:05 | disposition home or self-care (01) | LOC: JONCCHEMO 05:37 → JERBED 15:23 → JONCCHEMO 12:05 ==

== ENCOUNTER 2019-05-30 05:40 | Day surgery (SDC) | payer OTHER ==
[2019-05-30 08:34] LABS: BASO % 0.7 % (0-2.0); EOS % 2.3 % (0-4.5); HEMATOCRIT 38.2 % (35.4-49); HEMOGLOBIN 12.9 GM/dL (11.7-16.9); LYMPH % 15.7 % (8-40); MCH 29.7 pg (25.7-33.7); MCHC 33.6 g/dl (32.0-35.9); MEAN CELL VOLUME 88.3 fl (80-96); MEAN PLT VOLUME 7.7 fl (7.5-11.1); NEUT % 66.3 % (42.8-82.8); PLATELET COUNT 100 K/MM3 (134-434); RBC 4.33 M/mm3 (4.00-5.60); RDW 15.2 % (11.9-15.9); WHITE BLOOD COUNT 4.3 K/mm3 (4.0-10.0)
[2019-05-30 09:11] LABS: ALBUMIN 3.4 g/dl (3.4-5.0); BILIRUBIN,DIRECT 0.2 mg/dL (0.0-0.2); BILIRUBIN,TOTAL 0.8 mg/dL (0.2-1); BLOOD UREA NITROGEN 16.8 mg/dL (7-18); CALCIUM 9.2 mg/dL (8.5-10.1); CREATININE 0.9 mg/dL (0.55-1.3); MAGNESIUM 2.5 mg/dL (1.8-2.4); POTASSIUM 5.3 mmol/L (3.5-5.1); TOT PROT 6.4 g/dl (6.4-8.2)
[2019-05-30] MEDS ORDERED: DEXAMETHASONE SODIUM PHOSPHATE 20 MG in SODIUM CHLORIDE 50 ML IVPB ONE (10:00)
[2019-05-30] MEDS ORDERED: PALONOSETRON HCL 0.25 MG/5 ML VIAL IVPUSH ONE (10:00)
[2019-05-30] MEDS ORDERED: DEXTROSE 5% IVPB ONE (10:30)
[2019-05-30] MEDS ORDERED: OXALIPLATIN 160 MG in DEXTROSE 5%-WATER - 500 ML IV ONE (10:30)
[2019-05-30] MEDS ORDERED: WATER IVPB ONE (10:30)
[2019-05-30] MEDS ORDERED: LEUCOVORIN IVPB ONE (10:30)
[2019-05-30 10:53] VITALS: BP 125/76; PULSE 79; TEMP 98.5
[2019-05-30] MEDS ORDERED: PORTA CATH FLUSH 10 ML IVPUSH ONE (10:57)
[2019-05-30] MEDS ORDERED: FLUOROURACIL 2,500 MG/50 ML VIAL IVPUSH ONE (12:30)
[2019-05-30] MEDS ORDERED: FLUOROURACIL 3,000 MG in SODIUM CHLORIDE 32 ML CP ONE (12:45)
== END 2019-05-30 13:40 | disposition home or self-care (01) ==
LOC: JONCCHEMO 05:40 → J7W 09:05 → JONCCHEMO 13:40
PROVIDERS: ATTEND Internal Medicine Hematology & Oncology
DX: Z51.11 Encounter for antineoplastic chemotherapy (principal); C15.5 Malignant neoplasm of lower third of esophagus
CPT/HCPCS: 36415; 80048; 80076; 83735; 85025; 96366; 96367; 96375; 96409; 96411; 96413; 96415; 96417; G0498; J2469; J9263

== ENCOUNTER 2019-06-01 05:36 | Day surgery (SDC) | payer OTHER ==
[2019-06-01 16:14] VITALS: BP 111/76; PULSE 76; TEMP 97.9
[2019-06-01] MEDS ORDERED: PORTA CATH FLUSH 10 ML IVPUSH ONE (16:19)
== END 2019-06-01 12:30 | disposition home or self-care (01) ==
LOC: JONCCHEMO 05:36 → J7W 12:13 → JONCCHEMO 12:30
PROVIDERS: ATTEND Internal Medicine Hematology & Oncology
DX: Z53.8 Procedure and treatment not carried out for other reasons (principal)

== ENCOUNTER 2019-06-13 07:15 | Day surgery (SDC) | payer OTHER ==
[2019-06-13 08:45] LABS: BASO % 0.2 % (0-2.0); EOS % 0.5 % (0-4.5); HEMOGLOBIN 13.3 GM/dL (11.7-16.9); LYMPH % 9.7 % (8-40); MCH 30.3 pg (25.7-33.7); MCHC 34.1 g/dl (32.0-35.9); MEAN PLT VOLUME 7.9 fl (7.5-11.1); MONO % 14.3 % (3.8-10.2); NEUT % 75.3 % (42.8-82.8); PLATELET COUNT 114 K/MM3 (134-434); RBC 4.38 M/mm3 (4.00-5.60); RDW 15.3 % (11.9-15.9); WHITE BLOOD COUNT 6.2 K/mm3 (4.0-10.0)
[2019-06-13 09:11] LABS: ALBUMIN 3.5 g/dl (3.4-5.0); BILIRUBIN,TOTAL 0.9 mg/dL (0.2-1); BLOOD UREA NITROGEN 19.9 mg/dL (7-18); CALCIUM 8.8 mg/dL (8.5-10.1); CREATININE 0.9 mg/dL (0.55-1.3); MAGNESIUM 2.3 mg/dL (1.8-2.4); POTASSIUM 4.8 mmol/L (3.5-5.1); TOT PROT 6.5 g/dl (6.4-8.2)
[2019-06-13] MEDS ORDERED: DEXAMETHASONE SODIUM PHOSPHATE 20 MG in SODIUM CHLORIDE 50 ML IVPB ONE (09:30)
[2019-06-13] MEDS ORDERED: PALONOSETRON HCL 0.25 MG/5 ML VIAL IVPUSH ONE (09:30)
[2019-06-13] MEDS ORDERED: LEUCOVORIN IVPB ONE (10:00)
[2019-06-13] MEDS ORDERED: WATER IVPB ONE (10:00)
[2019-06-13] MEDS ORDERED: OXALIPLATIN 160 MG in DEXTROSE 5%-WATER - 500 ML IV ONE (10:00)
[2019-06-13] MEDS ORDERED: DEXTROSE 5% IVPB ONE (10:00)
[2019-06-13] MEDS ORDERED: FLUOROURACIL 2,500 MG/50 ML VIAL IVPUSH ONE (12:00)
[2019-06-13] MEDS ORDERED: FLUOROURACIL 3,000 MG in SODIUM CHLORIDE 32 ML CP ONE (12:15)
[2019-06-13 15:24] VITALS: TEMP 97.9
[2019-06-13 15:29] VITALS: BP 132/80; PULSE 64
== END 2019-06-13 12:45 | disposition home or self-care (01) ==
LOC: JONCCHEMO 07:15 → J7W 09:34 → JONCCHEMO 12:45
PROVIDERS: ATTEND Internal Medicine Hematology & Oncology
DX: Z51.11 Encounter for antineoplastic chemotherapy (principal); C15.5 Malignant neoplasm of lower third of esophagus
CPT/HCPCS: 36415; 80053; 83735; 85025; 96366; 96367; 96375; 96409; 96411; 96413; 96415; 96417; G0498; J2469; J9263

== ENCOUNTER 2019-06-15 07:16 | Day surgery (SDC) | payer OTHER ==
[2019-06-15 15:41] VITALS: BP 127/71; PULSE 102; TEMP 98
[2019-06-15] MEDS ORDERED: PORTA CATH FLUSH 10 ML IVPUSH ONE (15:41)
== END 2019-06-15 11:05 | disposition home or self-care (01) ==
LOC: JONCCHEMO 07:16 → J7W 10:51 → JONCCHEMO 11:05
PROVIDERS: ATTEND Internal Medicine Hematology & Oncology

== ENCOUNTER → 2019-07-03 | Day surgery (SDC) | payer OTHER ==
[~2019-07-03] MED LIST: DIPHENHYDRAMINE 50 MG in SODIUM CHLORIDE 50 ML IVPB ONE; RAMUCIRUMAB IVPB ONE; SODIUM CHLORIDE 500 ML IV ONE; SODIUM CHLORIDE IVPB ONE
[2019-07-03 09:07] VITALS: BP 132/84; PULSE 80; TEMP 97.9
[2019-07-03 09:32] LABS: EOS % 3.8 % (0-4.5); HEMATOCRIT 38.9 % (35.4-49); LYMPH % 22.7 % (8-40); MCH 30.4 pg (25.7-33.7); MCHC 33.4 g/dl (32.0-35.9); MONO % 20.9 % (3.8-10.2); NEUT % 51.6 % (42.8-82.8); PLATELET COUNT 151 K/MM3 (134-434); RBC 4.28 M/mm3 (4.00-5.60); RDW 16.2 % (11.9-15.9); WHITE BLOOD COUNT 3.5 K/mm3 (4.0-10.0)
[2019-07-03 10:25] LABS: ALBUMIN 3.2 g/dl (3.4-5.0); BILIRUBIN,TOTAL 0.9 mg/dL (0.2-1); BLOOD UREA NITROGEN 16.2 mg/dL (7-18); CALCIUM 9.1 mg/dL (8.5-10.1); CREATININE 0.9 mg/dL (0.55-1.3); MAGNESIUM 2.4 mg/dL (1.8-2.4); POTASSIUM 4.8 mmol/L (3.5-5.1); TOT PROT 6.3 g/dl (6.4-8.2)
[2019-07-03 13:08] LABS: ANISOCYTOSIS 1+; MACROCYTOSIS 0; PLATELET ESTIMATE NORMAL; TEAR DROP CELLS 1+
== END | disposition home or self-care (01) ==
LOC: JONCCHEMO 05:36
PROVIDERS: ATTEND Internal Medicine Hematology & Oncology
DX: Z53.8 Procedure and treatment not carried out for other reasons (principal)
CPT/HCPCS: 36415; 80053; 83735; 85025; 96365

== ENCOUNTER 2019-07-17 05:49 | Day surgery (SDC) | payer OTHER ==
[2019-07-17 09:16] LABS: BASO % 0.9 % (0-2.0); EOS % 3.9 % (0-4.5); HEMATOCRIT 39.2 % (35.4-49); HEMOGLOBIN 13.1 GM/dL (11.7-16.9); LYMPH % 10.8 % (8-40); MCH 29.9 pg (25.7-33.7); MCHC 33.3 g/dl (32.0-35.9); MEAN CELL VOLUME 89.7 fl (80-96); MEAN PLT VOLUME 9.2 fl (7.5-11.1); MONO % 7.8 % (3.8-10.2); NEUT % 76.6 % (42.8-82.8); PLATELET COUNT 167 K/MM3 (134-434); RBC 4.37 M/mm3 (4.00-5.60); RDW 15.3 % (11.9-15.9)
[2019-07-17 09:43] LABS: ALBUMIN 3.4 g/dl (3.4-5.0); BILIRUBIN,DIRECT 0.2 mg/dL (0.0-0.2); BILIRUBIN,TOTAL 0.8 mg/dL (0.2-1); BLOOD UREA NITROGEN 17.6 mg/dL (7-18); CREATININE 0.9 mg/dL (0.55-1.3); MAGNESIUM 2.1 mg/dL (1.8-2.4); POTASSIUM 3.8 mmol/L (3.5-5.1); TOT PROT 6.5 g/dl (6.4-8.2)
[2019-07-17] MEDS ORDERED: DIPHENHYDRAMINE 50 MG in SODIUM CHLORIDE 50 ML IVPB ONE (10:00)
[2019-07-17] MEDS ORDERED: RAMUCIRUMAB IVPB ONE (10:30)
[2019-07-17] MEDS ORDERED: SODIUM CHLORIDE IVPB ONE (10:30)
[2019-07-17] MEDS ORDERED: SODIUM CHLORIDE 500 ML IV ONE (11:30)
[2019-07-17 11:59] LABS: URINE COLOR YELLOW
[2019-07-17 12:00] LABS: URINE APPEARANCE CLEAR; URINE BILIRUBIN 1+ (NEGATIVE); URINE GLUCOSE (UA) NEGATIVE (NEGATIVE); URINE KETONE 1+ (NEGATIVE); URINE LEUK ESTERASE NEGATIVE (NEGATIVE); URINE NITRITE NEGATIVE (NEGATIVE); URINE PROTEIN 1+ (NEGATIVE)
[2019-07-17 15:04] VITALS: TEMP 97.8
[2019-07-18 07:45] VITALS: BP 134/87; PULSE 80
== END 2019-07-17 13:00 | disposition home or self-care (01) ==
LOC: JONCCHEMO 05:49 → J7W 08:45 → JONCCHEMO 13:00
PROVIDERS: ATTEND Internal Medicine Hematology & Oncology
DX: Z51.11 Encounter for antineoplastic chemotherapy (principal); C15.5 Malignant neoplasm of lower third of esophagus
CPT/HCPCS: 36415; 80048; 80076; 81003; 83735; 85025; 96361; 96375; 96413; J9308

== ENCOUNTER → 2019-07-25 | Day surgery (SDC) | payer OTHER | END | disposition home or self-care (01) | LOC: JRADIR 07:54 | PROVIDERS: ATTEND Internal Medicine Hematology & Oncology | PROC: B518YZZ Fluoroscopy of Superior Vena Cava using Other Contrast (ICD-10-PCS; principal; 2019-07-25) | DX: C15.5 Malignant neoplasm of lower third of esophagus (principal) | CPT/HCPCS: 36598 ==

== ENCOUNTER 2019-07-31 07:03 | Day surgery (SDC) | payer OTHER ==
[2019-07-31 08:31] LABS: BASO % 0.9 % (0-2.0); EOS % 6.3 % (0-4.5); HEMATOCRIT 38.3 % (35.4-49); HEMOGLOBIN 12.6 GM/dL (11.7-16.9); MCH 29.2 pg (25.7-33.7); MCHC 32.8 g/dl (32.0-35.9); MEAN PLT VOLUME 8.4 fl (7.5-11.1); NEUT % 70.8 % (42.8-82.8); PLATELET COUNT 185 K/MM3 (134-434); RDW 14.7 % (11.9-15.9); WHITE BLOOD COUNT 6.1 K/mm3 (4.0-10.0)
[2019-07-31 09:00] LABS: ALBUMIN 3.3 g/dl (3.4-5.0); BILIRUBIN,TOTAL 0.7 mg/dL (0.2-1); BLOOD UREA NITROGEN 16.1 mg/dL (7-18); CALCIUM 8.7 mg/dL (8.5-10.1); CREATININE 0.7 mg/dL (0.55-1.3); MAGNESIUM 2.3 mg/dL (1.8-2.4); POTASSIUM 4.2 mmol/L (3.5-5.1); TOT PROT 6.4 g/dl (6.4-8.2)
[2019-07-31 12:20] LABS: HYALINE CASTS 11 /lpf (0-8); URINE APPEARANCE CLEAR; URINE BACTERIA 0.3 /hpf (NEGATIVE); URINE BILIRUBIN 1+ (NEGATIVE); URINE COLOR DK YELLOW; URINE GLUCOSE (UA) NEGATIVE (NEGATIVE); URINE KETONE TRACE (NEGATIVE); URINE LEUK ESTERASE TRACE (NEGATIVE); URINE NITRITE NEGATIVE (NEGATIVE); URINE PROTEIN TRACE (NEGATIVE); URINE RBC 2 /hpf (0-4); URINE WBC 1 /hpf (0-5)
[2019-07-31 15:18] VITALS: BP 148/87; PULSE 78; TEMP 97.7
== END 2019-07-31 11:15 | disposition home or self-care (01) ==
LOC: JONCCHEMO 07:03 → J7W 12:10
PROVIDERS: ATTEND Internal Medicine Hematology & Oncology
DX: Z53.8 Procedure and treatment not carried out for other reasons (principal)
CPT/HCPCS: 36415; 80053; 81003; 83735; 85025

== ENCOUNTER 2019-08-01 09:15 | Day surgery (SDC) | payer OTHER ==
[2019-08-01] MEDS ORDERED: SODIUM CHLORIDE 500 ML IV ONE (11:00)
[2019-08-01] MEDS ORDERED: DIPHENHYDRAMINE 50 MG in SODIUM CHLORIDE 50 ML IVPB ONE (13:00)
[2019-08-01] MEDS ORDERED: RAMUCIRUMAB IVPB ONE (14:00)
[2019-08-01] MEDS ORDERED: SODIUM CHLORIDE IVPB ONE (14:00)
[2019-08-01 15:41] VITALS: BP 140/81; PULSE 76; TEMP 98.6
[2019-08-01] MEDS ORDERED: PORTA CATH FLUSH 10 ML IVPUSH ONE (15:55)
== END 2019-08-01 15:30 | disposition home or self-care (01) ==
LOC: JONCCHEMO 09:15 → J7W 12:50 → JONCCHEMO 15:30
PROVIDERS: ATTEND Internal Medicine Hematology & Oncology
DX: Z51.11 Encounter for antineoplastic chemotherapy (principal); C15.5 Malignant neoplasm of lower third of esophagus
CPT/HCPCS: 96361; 96367; 96375; 96413; J9308

== ENCOUNTER 2019-08-14 07:17 | Day surgery (SDC) | payer OTHER ==
[2019-08-14 08:41] LABS: BASO % 0.6 % (0-2.0); EOS % 3.9 % (0-4.5); HEMATOCRIT 38.8 % (35.4-49); HEMOGLOBIN 12.6 GM/dL (11.7-16.9); LYMPH % 9.7 % (8-40); MCH 28.6 pg (25.7-33.7); MCHC 32.5 g/dl (32.0-35.9); MEAN CELL VOLUME 87.8 fl (80-96); MEAN PLT VOLUME 8.4 fl (7.5-11.1); MONO % 7.9 % (3.8-10.2); NEUT % 77.9 % (42.8-82.8); PLATELET COUNT 155 K/MM3 (134-434); RBC 4.42 M/mm3 (4.00-5.60); RDW 14.8 % (11.9-15.9); WHITE BLOOD COUNT 6.4 K/mm3 (4.0-10.0)
[2019-08-14 09:07] LABS: ALBUMIN 3.4 g/dl (3.4-5.0); BILIRUBIN,TOTAL 0.8 mg/dL (0.2-1); CALCIUM 9.1 mg/dL (8.5-10.1); CREATININE 0.7 mg/dL (0.55-1.3); MAGNESIUM 2.3 mg/dL (1.8-2.4); TOT PROT 6.6 g/dl (6.4-8.2)
[2019-08-14] MEDS ORDERED: DIPHENHYDRAMINE 50 MG in SODIUM CHLORIDE 50 ML IVPB ONE (09:30)
[2019-08-14] MEDS ORDERED: SODIUM CHLORIDE IVPB ONE (10:00)
[2019-08-14] MEDS ORDERED: RAMUCIRUMAB IVPB ONE (10:00)
[2019-08-14 10:20] LABS: PH,URINE 6.5 (5.0-8.0); URINE APPEARANCE CLEAR; URINE BILIRUBIN NEGATIVE (NEGATIVE); URINE COLOR DK YELLOW; URINE GLUCOSE (UA) NEGATIVE (NEGATIVE); URINE KETONE TRACE (NEGATIVE); URINE LEUK ESTERASE NEGATIVE (NEGATIVE); URINE NITRITE NEGATIVE (NEGATIVE); URINE PROTEIN TRACE (NEGATIVE)
[2019-08-14] MEDS ORDERED: SODIUM CHLORIDE 500 ML IV ONE (11:00)
[2019-08-14 16:40] VITALS: PULSE 77; TEMP 98
[2019-08-14 16:41] VITALS: BP 151/81
== END 2019-08-14 12:30 | disposition home or self-care (01) ==
LOC: JONCCHEMO 07:17 → J7W 09:21 → JONCCHEMO 12:30
PROVIDERS: ATTEND Internal Medicine Hematology & Oncology
DX: Z51.11 Encounter for antineoplastic chemotherapy (principal); C15.5 Malignant neoplasm of lower third of esophagus
CPT/HCPCS: 36415; 80053; 81003; 83735; 84156; 85025; 96361; 96375; 96413; J9308

== ENCOUNTER → 2019-08-28 | Day surgery (SDC) | payer OTHER ==
[2019-08-28 08:41] LABS: BASO % 0.6 % (0-2.0); EOS % 2.9 % (0-4.5); HEMATOCRIT 34.5 % (35.4-49); LYMPH % 9.9 % (8-40); MCH 27.4 pg (25.7-33.7); MCHC 31.9 g/dl (32.0-35.9); MEAN CELL VOLUME 85.7 fl (80-96); MEAN PLT VOLUME 8.4 fl (7.5-11.1); MONO % 8.6 % (3.8-10.2); PLATELET COUNT 140 K/MM3 (134-434); RBC 4.02 M/mm3 (4.00-5.60); RDW 14.7 % (11.9-15.9); WHITE BLOOD COUNT 5.6 K/mm3 (4.0-10.0)
[2019-08-28 09:08] LABS: ALBUMIN 3.1 g/dl (3.4-5.0); BILIRUBIN,TOTAL 0.8 mg/dL (0.2-1); BLOOD UREA NITROGEN 18.5 mg/dL (7-18); CALCIUM 9.2 mg/dL (8.5-10.1); CREATININE 0.8 mg/dL (0.55-1.3); MAGNESIUM 2.6 mg/dL (1.8-2.4); TOT PROT 6.4 g/dl (6.4-8.2)
== END | disposition home or self-care (01) ==
LOC: JONCCHEMO 07:15
PROVIDERS: ATTEND Internal Medicine Hematology & Oncology
DX: Z53.8 Procedure and treatment not carried out for other reasons (principal)
CPT/HCPCS: 36415; 80053; 83735; 85025; 96365

== ENCOUNTER 2019-09-07 11:50 | Day surgery (SDC) | payer OTHER ==
[2019-09-07 12:49] VITALS: BMI 23.3
[2019-09-07 13:36] VITALS: TEMP 97.1
[2019-09-07 14:27] VITALS: BP 124/78; PULSE 94
== END 2019-09-07 14:24 | disposition home or self-care (01) ==
LOC: JASU-ENDO 11:50
PROVIDERS: ATTEND Internal Medicine Gastroenterology
PROC: 0DJ08ZZ Inspection of Upper Intestinal Tract, Via Natural or Artificial Opening Endoscopic (ICD-10-PCS; principal; 2019-09-07 13:15)
DX: D50.9 Iron deficiency anemia, unspecified (principal); K63.89 Other specified diseases of intestine; C15.5 Malignant neoplasm of lower third of esophagus; C78.7 Secondary malignant neoplasm of liver and intrahepatic bile duct; K62.5 Hemorrhage of anus and rectum

== ENCOUNTER 2019-09-11 11:52 | Day surgery (SDC) | payer OTHER ==
[2019-09-11 10:12] LABS: BASO % 0.5 % (0-2.0); EOS % 2.2 % (0-4.5); HEMATOCRIT 35.4 % (35.4-49); HEMOGLOBIN 11.3 GM/dL (11.7-16.9); LYMPH % 9.1 % (8-40); MCH 26.3 pg (25.7-33.7); MEAN PLT VOLUME 8.7 fl (7.5-11.1); MONO % 7.4 % (3.8-10.2); NEUT % 80.8 % (42.8-82.8); PLATELET COUNT 146 K/MM3 (134-434); RBC 4.31 M/mm3 (4.00-5.60); RDW 15.1 % (11.9-15.9); WHITE BLOOD COUNT 7.6 K/mm3 (4.0-10.0)
[2019-09-11 10:39] LABS: ALBUMIN 3.2 g/dl (3.4-5.0); BILIRUBIN,TOTAL 0.8 mg/dL (0.2-1); BLOOD UREA NITROGEN 19.8 mg/dL (7-18); CALCIUM 8.5 mg/dL (8.5-10.1); CREATININE 0.8 mg/dL (0.55-1.3); MAGNESIUM 2.5 mg/dL (1.8-2.4); POTASSIUM 4.4 mmol/L (3.5-5.1); TOT PROT 6.4 g/dl (6.4-8.2)
[2019-09-11] MEDS ORDERED: D5-1/2NS+20 MEQ KCL - 20 MEQ/1,000 ML INFUS.BAG IV SCH (12:45)
[2019-09-11] MEDS ORDERED: POTASSIUM CHLORIDE 20 MEQ, MAGNESIUM SULFATE 1 GM in DEXTROSE 5%-0.45% SALINE 1,000 ML IVPB SCH (12:45)
[2019-09-11] MEDS ORDERED: MAGNESIUM SULF 50% (8.12 MEQ/2 ML-1 GM VIAL) IVPB ONE (12:45)
[2019-09-11] MEDS ORDERED: KETOROLAC TROMETHAMINE 30 MG/1 ML VIAL IVPB ONE (13:30)
[2019-09-11 16:17] VITALS: BP 125/73; PULSE 97; TEMP 98.2
[2019-09-11] MEDS ORDERED: PORTA CATH FLUSH 10 ML IVPUSH ONE (16:17)
== END 2019-09-11 14:10 | disposition home or self-care (01) ==
LOC: JONCNONCHE 11:52 → J7W 11:52 → JONCNONCHE 14:10
PROVIDERS: ATTEND Internal Medicine Hematology & Oncology
PROC: 3E043GC Introduction of Other Therapeutic Substance into Central Vein, Percutaneous Approach (ICD-10-PCS; principal; 2019-09-11)
DX: C15.5 Malignant neoplasm of lower third of esophagus (principal); C78.7 Secondary malignant neoplasm of liver and intrahepatic bile duct; C79.70 Secondary malignant neoplasm of unspecified adrenal gland; Z76.89 Persons encountering health services in other specified circumstances
CPT/HCPCS: 36415; 80053; 83735; 85025; 96365; 96366

== ENCOUNTER 2019-09-14 10:26 | Day surgery (SDC) | payer OTHER ==
[2019-09-13 12:41] VITALS: BMI 23.3
[2019-09-14 11:31] VITALS: TEMP 97.7
[2019-09-14 13:50] VITALS: BP 129/63; PULSE 95
== END 2019-09-14 13:45 | disposition home or self-care (01) ==
LOC: JASU-ENDO 10:26
PROVIDERS: ATTEND Internal Medicine Gastroenterology
PROC: 0DJD8ZZ Inspection of Lower Intestinal Tract, Via Natural or Artificial Opening Endoscopic (ICD-10-PCS; principal; 2019-09-14 12:30)
DX: D64.9 Anemia, unspecified (principal); K57.30 Diverticulosis of large intestine without perforation or abscess without bleeding; K64.8 Other hemorrhoids; C15.5 Malignant neoplasm of lower third of esophagus; C78.7 Secondary malignant neoplasm of liver and intrahepatic bile duct

== ENCOUNTER 2019-09-21 07:19 | Day surgery (SDC) | payer OTHER ==
[2019-09-21 09:20] LABS: BASO % 0.6 % (0-2.0); EOS % 1.7 % (0-4.5); HEMATOCRIT 34.4 % (35.4-49); HEMOGLOBIN 11.2 GM/dL (11.7-16.9); LYMPH % 7.6 % (8-40); MCHC 32.5 g/dl (32.0-35.9); MEAN CELL VOLUME 80.2 fl (80-96); MEAN PLT VOLUME 8.8 fl (7.5-11.1); MONO % 8.8 % (3.8-10.2); NEUT % 81.3 % (42.8-82.8); PLATELET COUNT 175 K/MM3 (134-434); RBC 4.29 M/mm3 (4.00-5.60); RDW 15.3 % (11.9-15.9); WHITE BLOOD COUNT 9.8 K/mm3 (4.0-10.0)
[2019-09-21 09:57] LABS: ALBUMIN 3.1 g/dl (3.4-5.0); BILIRUBIN,TOTAL 0.9 mg/dL (0.2-1); BLOOD UREA NITROGEN 18.6 mg/dL (7-18); CALCIUM 9.2 mg/dL (8.5-10.1); CREATININE 0.9 mg/dL (0.55-1.3); MAGNESIUM 2.4 mg/dL (1.8-2.4); POTASSIUM 4.8 mmol/L (3.5-5.1); TOT PROT 6.4 g/dl (6.4-8.2)
[2019-09-21] MEDS ORDERED: DEXAMETHASONE SODIUM PHOSPHATE 8 MG, ONDANSETRON INJECTION 8 MG in SODIUM CHLORIDE 100 ML IVPB ONE (10:00)
[2019-09-21] MEDS ORDERED: PEMBROLIZUMAB 200 MG in SODIUM CHLORIDE 50 ML IV ONE (10:30)
[2019-09-21 14:32] VITALS: TEMP 98.4
[2019-09-21] MEDS ORDERED: PORTA CATH FLUSH 10 ML IVPUSH ONE (14:32)
[2019-09-21 14:34] VITALS: BP 115/74; PULSE 91
== END 2019-09-21 11:45 | disposition home or self-care (01) ==
LOC: JONCCHEMO 07:19 → J7W 10:04 → JONCCHEMO 11:45
PROVIDERS: ATTEND Internal Medicine Hematology & Oncology
DX: Z51.11 Encounter for antineoplastic chemotherapy (principal); C15.5 Malignant neoplasm of lower third of esophagus; C78.7 Secondary malignant neoplasm of liver and intrahepatic bile duct; C79.70 Secondary malignant neoplasm of unspecified adrenal gland
CPT/HCPCS: 36415; 80053; 83735; 85025; 96367; 96413; J9271

== ENCOUNTER 2019-10-03 12:48 | Day surgery (SDC) | payer OTHER ==
[2019-10-03 11:10] LABS: BASO % 0.8 % (0-2.0); EOS % 1.1 % (0-4.5); HEMATOCRIT 35.8 % (35.4-49); HEMOGLOBIN 11.2 GM/dL (11.7-16.9); LYMPH % 3.8 % (8-40); MCHC 31.4 g/dl (32.0-35.9); MEAN CELL VOLUME 76.5 fl (80-96); MEAN PLT VOLUME 8.3 fl (7.5-11.1); MONO % 6.7 % (3.8-10.2); NEUT % 87.6 % (42.8-82.8); PLATELET COUNT 278 K/MM3 (134-434); RBC 4.67 M/mm3 (4.00-5.60); RDW 16.3 % (11.9-15.9); WHITE BLOOD COUNT 11.3 K/mm3 (4.0-10.0)
[2019-10-03 12:07] LABS: ALBUMIN 2.6 g/dl (3.4-5.0); BILIRUBIN,TOTAL 0.9 mg/dL (0.2-1); BLOOD UREA NITROGEN 19.1 mg/dL (7-18); CALCIUM 8.3 mg/dL (8.5-10.1); CREATININE 0.8 mg/dL (0.55-1.3); MAGNESIUM 2.2 mg/dL (1.8-2.4); POTASSIUM 4.5 mmol/L (3.5-5.1); TOT PROT 5.6 g/dl (6.4-8.2)
[2019-10-03] MEDS ORDERED: MAGNESIUM SULFATE IVPB ONE (13:30)
[2019-10-03] MEDS ORDERED: POTASSIUM CHLORIDE IVPB ONE (13:30)
[2019-10-03] MEDS ORDERED: MULTIVIT IVPB ONE (13:30)
[2019-10-03] MEDS ORDERED: DEXAMETHASONE SODIUM PHOSPHATE 4 MG, ONDANSETRON INJECTION 8 MG in SODIUM CHLORIDE 100 ML IVPB ONE (13:30)
[2019-10-03] MEDS ORDERED: [UNRECOGNIZED DRUG - OTHER] IVPB ONE (13:30)
[2019-10-03] MEDS ORDERED: KETOROLAC TROMETHAMINE 30 MG/1 ML VIAL IVPB ONE (13:45)
[2019-10-03 17:37] VITALS: BP 115/80; PULSE 93; TEMP 97.3
--- NOTE | 2019-10-12 17:10 | PN ---
Progress Note, Physician Chief Complaint: abdominal pain s/p Oesophageal CA with metastasis History of Present Illness: 59 yr old male with h/o oesophageal CA with mets c/o andominal pain 11/13 . He had Toradol IV. He is c/o constipation as he taking Oxycodone. - Objective Vital Signs: Vital Signs Temperature 97.3 F L 10/03/19 12:48 Pulse Rate 93 H 10/03/19 12:48 Respiratory Rate 10/03/19 12:48 Blood Pressure 115/80 10/03/19 12:48 O2 Sat by Pulse Oximetry (%) Constitutional: Yes: Well Nourished Eyes: Yes: WNL HENT: Yes: WNL Neck: Yes: WNL Respiratory: Yes: WNL Gastrointestinal: Yes: Distention, Other Extremities: Yes: WNL Edema: No Neurological: Yes: WNL, Alert, Oriented ...Motor Strength: WNL Labs: CBC, BMP 10/03/19 10:58 10/03/19 10:58 Assessment/Plan Abdominal pain Oesophageal CA with Mets Constipation. Plan: Discussed in detail and answered all his question . He is fine with current medication Oxycodone 5 mg PO Q4 PRN Citroma 300 ml PO x1 for constipation. Thank for your kind referral if call me if you any question at [phone] .
[2019-10-12] MEDS ORDERED: MAGNESIUM CITRATE 300 ML BOTTLE PO ONE (17:19)
== END 2019-10-03 17:15 | disposition home or self-care (01) ==
LOC: JONCCHEMO 12:48 → J7W 13:09 → JONCCHEMO 17:15
PROVIDERS: ATTEND Internal Medicine Hematology & Oncology
PROC: 3E033GC Introduction of Other Therapeutic Substance into Peripheral Vein, Percutaneous Approach (ICD-10-PCS; principal; 2019-10-03)
PROC: 3E043GC Introduction of Other Therapeutic Substance into Central Vein, Percutaneous Approach (ICD-10-PCS; 2019-10-03)
DX: C15.5 Malignant neoplasm of lower third of esophagus (principal); C78.7 Secondary malignant neoplasm of liver and intrahepatic bile duct; C79.70 Secondary malignant neoplasm of unspecified adrenal gland; Z76.89 Persons encountering health services in other specified circumstances
CPT/HCPCS: 36415; 80053; 82140; 82150; 83690; 83735; 85025; 96361; 96365; 96367; J2405

== ENCOUNTER 2019-10-04 07:12 | Day surgery (SDC) | payer OTHER ==
[2019-10-04] MEDS ORDERED: KETOROLAC TROMETHAMINE 30 MG/1 ML VIAL IVPB ONE (10:00)
[2019-10-04] MEDS ORDERED: DEXAMETHASONE INJECTION 4 MG, ONDANSETRON INJECTION 8 MG in SODIUM CHLORIDE 100 ML IVPB ONE (10:30)
[2019-10-04] MEDS ORDERED: DEXTROSE 10% IVPB ONE (10:30)
[2019-10-04] MEDS ORDERED: WATER IVPB ONE (10:30)
[2019-10-04] MEDS ORDERED: POTASSIUM CHLORIDE IVPB ONE (10:30)
[2019-10-04] MEDS ORDERED: [UNRECOGNIZED DRUG - OTHER] IVPB ONE (10:30)
[2019-10-04] MEDS ORDERED: MAGNESIUM SULFATE IVPB ONE (10:30)
[2019-10-04] MEDS ORDERED: ONDANSETRON 4 MG/2 ML VIAL ONE (10:32)
[2019-10-04] MEDS ORDERED: SODIUM CHLORIDE 100 ML IVPB ONE (10:32)
[2019-10-04] MEDS ORDERED: DEXAMETHASONE SOD PHOSPHATE 4 MG/1 ML VIAL ONE (10:32)
[2019-10-04 16:10] VITALS: BP 126/82; PULSE 93; TEMP 98.4
[2019-10-04] MEDS ORDERED: PORTA CATH FLUSH 10 ML IVPUSH ONE (16:10)
== END 2019-10-04 14:00 | disposition home or self-care (01) ==
LOC: JONCNONCHE 07:12 → J7W 10:10 → JONCNONCHE 14:00
PROVIDERS: ATTEND Internal Medicine Hematology & Oncology
PROC: 3E043GC Introduction of Other Therapeutic Substance into Central Vein, Percutaneous Approach (ICD-10-PCS; principal; 2019-10-04)
PROC: 3E043GC Introduction of Other Therapeutic Substance into Central Vein, Percutaneous Approach (ICD-10-PCS; 2019-10-04)
DX: C15.5 Malignant neoplasm of lower third of esophagus (principal); C78.7 Secondary malignant neoplasm of liver and intrahepatic bile duct; C79.70 Secondary malignant neoplasm of unspecified adrenal gland; Z76.89 Persons encountering health services in other specified circumstances
CPT/HCPCS: 96361; 96365

== ENCOUNTER 2019-10-05 08:24 | Day surgery (SDC) | payer OTHER ==
[2019-10-05] MEDS ORDERED: [UNRECOGNIZED DRUG - OTHER] IVPB ONE (10:30)
[2019-10-05] MEDS ORDERED: MAGNESIUM SULFATE IVPB ONE (10:30)
[2019-10-05] MEDS ORDERED: POTASSIUM CHLORIDE IVPB ONE (10:30)
[2019-10-05] MEDS ORDERED: DEXAMETHASONE INJECTION 4 MG, ONDANSETRON INJECTION 8 MG in SODIUM CHLORIDE 100 ML IVPB ONE (10:30)
[2019-10-05] MEDS ORDERED: MULTIVIT IVPB ONE (10:30)
[2019-10-05] MEDS ORDERED: KETOROLAC TROMETHAMINE 30 MG/1 ML VIAL IVPB ONE (11:15)
[2019-10-05 17:37] VITALS: TEMP 97.3
[2019-10-05 17:43] VITALS: BP 127/78; PULSE 91
[2019-10-05] MEDS ORDERED: PORTA CATH FLUSH 10 ML IVPUSH ONE (17:43)
== END 2019-10-05 14:00 | disposition home or self-care (01) ==
LOC: JONCNONCHE 08:24 → J7W 10:15 → JONCNONCHE 14:00
PROVIDERS: ATTEND Internal Medicine Hematology & Oncology
PROC: 3E043GC Introduction of Other Therapeutic Substance into Central Vein, Percutaneous Approach (ICD-10-PCS; principal; 2019-10-05)
PROC: 3E043GC Introduction of Other Therapeutic Substance into Central Vein, Percutaneous Approach (ICD-10-PCS; 2019-10-05)
DX: C15.5 Malignant neoplasm of lower third of esophagus (principal); C79.70 Secondary malignant neoplasm of unspecified adrenal gland; C78.7 Secondary malignant neoplasm of liver and intrahepatic bile duct; Z76.89 Persons encountering health services in other specified circumstances
CPT/HCPCS: 96361; 96365; J1100

== ENCOUNTER 2019-10-06 07:00 | Day surgery (SDC) | payer OTHER ==
[2019-10-06] MEDS ORDERED: KETOROLAC TROMETHAMINE 30 MG/1 ML VIAL IVPB ONE (10:00)
[2019-10-06] MEDS ORDERED: DEXTROSE 10% IVPB ONE (10:00)
[2019-10-06] MEDS ORDERED: ONDANSETRON 4 MG/2 ML VIAL IVPB ONE (10:00)
[2019-10-06] MEDS ORDERED: DEXAMETHASONE SOD PHOSPHATE 4 MG/1 ML VIAL IVPB ONE (10:00)
[2019-10-06] MEDS ORDERED: POTASSIUM CHLORIDE IVPB ONE (10:00)
[2019-10-06] MEDS ORDERED: MAGNESIUM SULFATE IVPB ONE (10:00)
[2019-10-06] MEDS ORDERED: WATER IVPB ONE (10:00)
[2019-10-06] MEDS ORDERED: [UNRECOGNIZED DRUG - OTHER] IVPB ONE (10:00)
[2019-10-06 14:21] VITALS: BP 112/70; PULSE 76; TEMP 97.7
== END 2019-10-06 13:35 | disposition home or self-care (01) ==
LOC: JONCNONCHE 07:00 → J7W 09:33 → JONCNONCHE 13:35
PROVIDERS: ATTEND Internal Medicine Hematology & Oncology
PROC: 3E043GC Introduction of Other Therapeutic Substance into Central Vein, Percutaneous Approach (ICD-10-PCS; principal; 2019-10-06)
PROC: 3E043GC Introduction of Other Therapeutic Substance into Central Vein, Percutaneous Approach (ICD-10-PCS; 2019-10-06)
DX: C15.5 Malignant neoplasm of lower third of esophagus (principal); C78.7 Secondary malignant neoplasm of liver and intrahepatic bile duct; C79.70 Secondary malignant neoplasm of unspecified adrenal gland; Z76.89 Persons encountering health services in other specified circumstances
CPT/HCPCS: 96361; 96365

== ENCOUNTER 2019-10-12 05:37 | Inpatient (IN) | payer OTHER ==
[2019-10-12] MEDS ORDERED: DEXAMETHASONE SODIUM PHOSPHATE 8 MG, ONDANSETRON INJECTION 8 MG in SODIUM CHLORIDE 100 ML IVPB ONE (09:30)
[2019-10-12] MEDS ORDERED: PEMBROLIZUMAB 200 MG in SODIUM CHLORIDE 50 ML IVPB ONE (10:00)
[2019-10-12 10:20] LABS: BASO % 0.7 % (0-2.0); HEMATOCRIT 35.1 % (35.4-49); HEMOGLOBIN 11.1 GM/dL (11.7-16.9); LYMPH % 6.3 % (8-40); MCH 23.7 pg (25.7-33.7); MCHC 31.6 g/dl (32.0-35.9); MEAN PLT VOLUME 8.7 fl (7.5-11.1); MONO % 10.4 % (3.8-10.2); NEUT % 81.6 % (42.8-82.8); PLATELET COUNT 267 K/MM3 (134-434); RBC 4.67 M/mm3 (4.00-5.60); RDW 16.7 % (11.9-15.9); WHITE BLOOD COUNT 12.4 K/mm3 (4.0-10.0)
[2019-10-12 11:11] LABS: ALBUMIN 2.7 g/dl (3.4-5.0); BILIRUBIN,TOTAL 1.2 mg/dL (0.2-1); BLOOD UREA NITROGEN 22.5 mg/dL (7-18); CALCIUM 8.8 mg/dL (8.5-10.1); MAGNESIUM 2.3 mg/dL (1.8-2.4); POTASSIUM 4.3 mmol/L (3.5-5.1)
[2019-10-12] MEDS ORDERED: KETOROLAC TROMETHAMINE 30 MG/1 ML VIAL IVPUSH ONE (12:00)
[2019-10-12] MEDS: DRONABINOL 5 MG CAPSULE PO SCH ×2 (12:59→18:18)
[2019-10-12] MEDS: MAGNESIUM SULF 50% (8.12 MEQ/2 ML-1 GM VIAL) IVPB SCH (13:52)
[2019-10-12] MEDS: oxyCODONE HCL 5 MG TABLET PO SCH ×4 (14:13→21:44)
[2019-10-12] MEDS: D5-NS + 20 MEQ KCL - 20 MEQ/1,000 ML INFUS.BAG IV SCH (14:45)
--- NOTE | 2019-10-12 17:06 | CONSULT ---
Consult Consult Specialty:: Nephrology Reason for Consultation:: malnutrition - History of Present Illness Chief Complaint: decreased po intake History of Present Illness: Pt is a 59 year old male with pmhx of esophageal cancer who presents for chemotherapy. He complains of decrease PO intake. He has not had much to eat over the last few weeks. He also complains of abdominal discomfort. He says that he feels dehydrated. He had pembrolizumab therapy today. Hed denies dysuria or hematuria. - History Source History Provided By: Patient - Past Medical History Gastrointestinal: Yes: Cancer - Alcohol/Substance Use Hx Alcohol Use: Yes (SOCIALLY) - Smoking History Smoking history: Never smoked Have you smoked in the past 12 months: No Aproximately how many cigarettes per day: 0 Home Medications - Allergies Allergies/Adverse Reactions: Allergies Allergy/AdvReac Type Severity Reaction Status Date / Time No Known Allergies Allergy Verified 01/31/19 18:22 - Home Medications Home Medications: Ambulatory Orders Pantoprazole Sodium 40 mg PO BID 04/18/19 Ramucirumab [Cyramza] 100 mg IV ASDIR 09/07/19 Simethicone 80 mg PO DAILY 09/07/19 Family Medical History Family History: Denies Review of Systems - Review of Systems Constitutional: reports: Malaise Eyes: reports: No Symptoms HENT: reports: No Symptoms Neck: reports: No Symptoms Cardiovascular: reports: No Symptoms Respiratory: reports: No Symptoms Gastrointestinal: reports: Abdominal Pain Genitourinary: reports: No Symptoms Physical Exam Constitutional: Yes: Calm HENT: Yes: Atraumatic Cardiovascular: Yes: S1, S2 Respiratory: Yes: CTA Bilaterally Gastrointestinal: Yes: Tenderness, Other (palpable mass right side) Renal/: Yes: WNL Musculoskeletal: Yes: WNL Edema: No Neurological: Yes: Oriented Psychiatric: Yes: Oriented Labs: CBC, BMP 10/12/19 09:54 10/12/19 09:54 Assessment/Plan Current Medications Generic Name Dose Route Start Last Admin Trade Name Freq PRN Reason Stop Dose Admin Dronabinol 5 mg 10/12/19 12:15 10/12/19 12:59 Marinol - PO 5 mg 1130,1700 NILAY Administration Dextrose/Sodium Chloride 20 meq in 1,000 mls @ 100 mls/hr 10/12/19 12:00 02/23 14:45 Dextrose 5%-Normal Saline+20 Meq Kcl - IV 100 mls/hr ASDIR NILAY Administration Magnesium Sulfate 1 gm 10/12/19 13:00 10/12/19 13:52 Magnesium Sulfate IVPB 1 gm ONCE NILAY Administration Oxycodone HCl 10 mg 10/12/19 22:00 Roxicodone - PO HS NILAY Oxycodone HCl 5 mg 10/12/19 12:15 10/12/19 14:13 Roxicodone - PO Not Given Q4H NILAY Impression 1. esophageal cancer 2. failure to thrive 3. malnutrition 4. constipation Plan - will start clinimix - repeat labs in am - pain control - will need bowel regimen - discussed with oncology
[2019-10-12] MEDS ORDERED: MAGNESIUM CITRATE 300 ML BOTTLE PO ONE (17:30)
[2019-10-12 18:17] VITALS: BMI 22.5
[2019-10-12] MEDS ORDERED: PORTA CATH FLUSH 10 ML IVPUSH PRN (18:17)
--- NOTE | 2019-10-12 19:12 | PN ---
Progress Note (short form) - Note Progress Note: 59 y/o Stage IV Esophageal CA on Pembrolizumab therapy. Presents for abdominal discomfort, decreased po intake and dehydration Family Medical History Family History: Denies Review of Systems - Review of Systems Constitutional: reports: Malaise Eyes: reports: No Symptoms HENT: reports: No Symptoms Neck: reports: No Symptoms Cardiovascular: reports: No Symptoms Respiratory: reports: No Symptoms Gastrointestinal: reports: Abdominal Pain Genitourinary: reports: No Symptoms Physical Exam Constitutional: NAD HENT: MMM Cardiovascular: Yes: S1, S2 Respiratory: Yes: CTA Bilaterally Gastrointestinal:palpable mass right side Neuro: Orineted 10/12/19 09:54 10/12/19 09:54 Current Medications Dronabinol (Marinol -) 5 mg PO 1130,1700 [facility] Last Admin: 10/12/19 18:18 Dose: 5 mg IV Flush (Shavon-Cath Flush) 10 ml IVPUSH PRN PRN PRN Reason: protocol Dextrose/Sodium Chloride (Dextrose 5%-Normal Saline+20 Meq Kcl -) 20 meq in 1, 000 mls @ 100 mls/hr IV ASDIR NILAY Last Admin: 10/12/19 14:45 Dose: 100 mls/hr Amino Acids (Clinimix -) 1,000 mls @ 60 mls/hr IV Q16H NILAY Magnesium Sulfate (Magnesium Sulfate) 1 gm IVPB ONCE [facility] Last Admin: 10/12/19 13:52 Dose: 1 gm Oxycodone HCl (Roxicodone -) 10 mg PO HS NILAY Oxycodone HCl (Roxicodone -) 5 mg PO Q4H [facility] Last Admin: 10/12/19 18:18 Dose: Not Given Assessment and Plan: 59 y/o gentleman with Stage IV Esophageal CA on Pembrolizumab Plan: 1) Clinimix. Renal evaluation sury 2) FTT 3) Labs in AM 4) Will re-eval in AM
[2019-10-12] MEDS: AMINO ACIDS 4.25%/D5W 1,000 ML IV SCH (20:16)
[2019-10-13] MEDS: oxyCODONE HCL 5 MG TABLET PO SCH ×7 (01:25→21:43)
[2019-10-13 07:26] LABS: BASO % 0.1 % (0-2.0); EOS % 0.1 % (0-4.5); HEMATOCRIT 29.4 % (35.4-49); HEMOGLOBIN 9.6 GM/dL (11.7-16.9); LYMPH % 4.9 % (8-40); MCH 24.4 pg (25.7-33.7); MCHC 32.7 g/dl (32.0-35.9); MEAN CELL VOLUME 74.6 fl (80-96); MEAN PLT VOLUME 9.3 fl (7.5-11.1); MONO % 6.6 % (3.8-10.2); NEUT % 88.3 % (42.8-82.8); PLATELET COUNT 221 K/MM3 (134-434); RBC 3.94 M/mm3 (4.00-5.60); RDW 16.5 % (11.9-15.9)
[2019-10-13 08:03] LABS: ALBUMIN 2.3 g/dl (3.4-5.0); BILIRUBIN,TOTAL 0.8 mg/dL (0.2-1); BLOOD UREA NITROGEN 29.6 mg/dL (7-18); CALCIUM 8.2 mg/dL (8.5-10.1); CREATININE 0.8 mg/dL (0.55-1.3); MAGNESIUM 3.1 mg/dL (1.8-2.4); PHOSPHOROUS 3.4 mg/dL (2.5-4.9); POTASSIUM 4.8 mmol/L (3.5-5.1); PREALBUMIN 6.4 mg/dl (20-40); TOT PROT 5.2 g/dl (6.4-8.2); URIC ACID 6.7 mg/dL (2.6-7.2)
[2019-10-13] MEDS: AMINO ACIDS 4.25%/D5W 1,000 ML IV SCH ×2 (11:14→20:39)
[2019-10-13] MEDS: DRONABINOL 5 MG CAPSULE PO SCH ×2 (11:15→17:27)
[2019-10-13] MEDS: D5-NS + 20 MEQ KCL - 20 MEQ/1,000 ML INFUS.BAG IV SCH (13:28)
[2019-10-13] MEDS: MAGNESIUM SULF 50% (8.12 MEQ/2 ML-1 GM VIAL) IVPB SCH (15:08)
--- NOTE | 2019-10-13 19:09 | PN ---
Progress Note, Physician History of Present Illness: Pt seen and examined at bedside. He did have a bowel movement. He denies shortness of breath. He feels that his appetite is a little better today. - Current Medication List Current Medications: Active Medications Dronabinol (Marinol -) 5 mg PO 1130,1700 [facility] Last Admin: 10/13/19 17:27 Dose: 5 mg IV Flush (Shavon-Cath Flush) 10 ml IVPUSH PRN PRN PRN Reason: protocol Dextrose/Sodium Chloride (Dextrose 5%-Normal Saline+20 Meq Kcl -) 20 meq in 1, 000 mls @ 100 mls/hr IV ASDIR [facility] Last Admin: 10/13/19 13:28 Dose: 100 mls/hr Amino Acids (Clinimix -) 1,000 mls @ 60 mls/hr IV Q16H [facility] Last Admin: 10/13/19 11:14 Dose: 60 mls/hr Magnesium Sulfate (Magnesium Sulfate) 1 gm IVPB ONCE [facility] Last Admin: 10/13/19 15:08 Dose: Not Given Oxycodone HCl (Roxicodone -) 10 mg PO HS [facility] Last Admin: 10/12/19 21:44 Dose: 10 mg Oxycodone HCl (Roxicodone -) 5 mg PO Q4H [facility] Last Admin: 10/13/19 17:28 Dose: Not Given - Objective Vital Signs: Vital Signs Temperature 97.8 F 10/13/19 18:00 Pulse Rate 108 H 10/13/19 18:00 Respiratory Rate 18 10/13/19 18:00 Blood Pressure 111/67 10/13/19 18:00 O2 Sat by Pulse Oximetry (%) 98 10/12/19 21:00 Constitutional: Yes: Calm Eyes: Yes: Conjunctiva Clear HENT: Yes: Atraumatic Neck: Yes: Supple Cardiovascular: Yes: S1, S2 Respiratory: Yes: CTA Bilaterally Gastrointestinal: Yes: Soft Genitourinary: Yes: WNL Musculoskeletal: Yes: WNL Edema: No Neurological: Yes: Oriented Labs: CBC, BMP 10/13/19 06:20 10/13/19 06:20 Assessment/Plan Current Medications Generic Name Dose Route Start Last Admin Trade Name Freq PRN Reason Stop Dose Admin Dronabinol 5 mg 10/12/19 12:15 10/13/19 17:27 Marinol - PO 5 mg 1130,1700 NILAY Administration IV Flush 10 ml 10/12/19 18:17 Shavon-Cath Flush IVPUSH PRN PRN protocol Dextrose/Sodium Chloride 20 meq in 1,000 mls @ 100 mls/hr 10/12/19 12:00 03/25 13:28 Dextrose 5%-Normal Saline+20 Meq Kcl - IV 100 mls/hr ASDIR NILAY Administration Amino Acids 1,000 mls @ 60 mls/hr 10/12/19 17:15 10/13/19 11:14 Clinimix - IV 60 mls/hr Q16H NILAY Administration Magnesium Sulfate 1 gm 10/12/19 13:00 10/13/19 15:08 Magnesium Sulfate IVPB Not Given ONCE NILAY Oxycodone HCl 10 mg 10/12/19 22:00 10/12/19 21:44 Roxicodone - PO 10 mg HS NILAY Administration Oxycodone HCl 5 mg 10/12/19 12:15 10/13/19 17:28 Roxicodone - PO Not Given Q4H NILAY Impression 1. esophageal cancer 2. failure to thrive 3. malnutrition 4. constipation Plan - cont clinimix for now - repeat labs in am - adjust saline - cont bowel regimen, avoid constipation - pain control
[2019-10-13] MEDS ORDERED: SODIUM CHLORIDE 1,000 ML IV SCH (19:15)
--- NOTE | 2019-10-13 22:01 | PN ---
Progress Note (short form) - Note Progress Note: PAtient seen and examined Feels ok AFVSS Cor: RSR, No murmurs, No gallops Lungs: Clear to P&A Abd: Soft, Normal bowel sounds, No organomegaly Ext:No significant edema Labs/MEds reviewed A?P 59 y/o gentleman with Stage IV Esophageal CA on Pembrolizumab admitted with failure to thrive Improved with hydration Will discharge home in AM
[2019-10-14] MEDS: oxyCODONE HCL 5 MG TABLET PO SCH ×3 (01:00→07:51)
[2019-10-14 06:06] VITALS: BP 118/68; PULSE 84; TEMP 97.8
[2019-10-14 07:12] LABS: ALBUMIN 2.1 g/dl (3.4-5.0); BILIRUBIN,TOTAL 0.6 mg/dL (0.2-1); BLOOD UREA NITROGEN 26.2 mg/dL (7-18); CALCIUM 7.7 mg/dL (8.5-10.1); CREATININE 0.6 mg/dL (0.55-1.3); MAGNESIUM 2.5 mg/dL (1.8-2.4); PHOSPHOROUS 2.5 mg/dL (2.5-4.9); POTASSIUM 4.3 mmol/L (3.5-5.1); TOT PROT 4.7 g/dl (6.4-8.2)
[2019-10-14] MEDS: AMINO ACIDS 4.25%/D5W 1,000 ML IV SCH (09:32)
== END 2019-10-14 10:48 | disposition home or self-care (01) | DRG 696 ==
LOC: JONCCHEMO 05:37 → J7W 10:20
PROVIDERS: ADMIT Internal Medicine Hematology & Oncology; ATTEND Internal Medicine Hematology & Oncology
DX: Z51.11 Encounter for antineoplastic chemotherapy (principal); R62.7 Adult failure to thrive; E86.0 Dehydration; R10.9 Unspecified abdominal pain; C15.9 Malignant neoplasm of esophagus, unspecified; E46 Unspecified protein-calorie malnutrition; Z68.22 Body mass index [BMI] 22.0-22.9, adult; K59.00 Constipation, unspecified
CPT/HCPCS: 36415; 74018-TC-FY; 80053; 83735; 84100; 84134; 84550; 85025; J2405; J7030; J9271

== ENCOUNTER 2019-10-30 10:55 | Inpatient (IN) | payer OTHER ==
[2019-10-30] MEDS ORDERED: SODIUM CHLORIDE 1,000 ML IV STA (12:40)
[2019-10-30] MEDS ORDERED: ONDANSETRON 4 MG/2 ML VIAL IVPUSH ONE (12:40)
--- NOTE | 2019-10-30 12:46 | PDOC ---
Rapid Medical Evaluation Chief Complaint: Constipation Time Seen by Provider: 10/30/19 12:31 Medical Evaluation: Allergies Allergy/AdvReac Type Severity Reaction Status Date / Time No Known Allergies Allergy Verified 01/31/19 18:22 Vital Signs Temp Pulse Resp BP Pulse Ox 97.3 F L 119 H 16 96/75 100 10/30/19 11:04 10/30/19 11:04 10/30/19 11:04 10/30/19 11:04 10/30/19 11:04 10/30/19 12:42 Patient is a 59-year-old male with history of esophageal CA with mets to his liver who presents to the ED with his for not being able to have a bowel movement for 1 week. The patient also admits to having abdominal distention and shortness of breath. is concerned because he has not been eating anything. He has been drinking but not very much. Brief exam: Hypotensive and tachycardic Pale and cachectic. Very dry mucosa Moderate abdominal distention. Abdomen soft and nontender. Ascites appreciated. Orders: labs, abd XR flat and upright, fluids Plan: to the Main ED for further evaluation 10/30/19 12:45 Discharge Disposition - Discharge Dispostion Condition at time of disposition: Stable Last Admission D/C Date: 10/14/19 - Referrals Referrals: Guille Chandler MD [Primary Care Provider] - - Patient Instructions - Post Discharge Activity
[2019-10-30] MEDS ORDERED: ONDANSETRON 4 MG/2 ML VIAL ONE ×2 (12:51→13:40)
[2019-10-30] MEDS ORDERED: LACTATED RINGERS SOLUTION 1000 ML INFUS.BAG IV ONE (13:17)
[2019-10-30] MEDS ORDERED: oxyCODONE HCL 10 MG SUSTAINED ACTING TABLET PO ONE (13:26)
--- NOTE | 2019-10-30 13:29 | PDOC ---
History of Present Illness - General Chief Complaint: Constipation Stated Complaint: VOMITING Time Seen by Provider: 10/30/19 12:31 History Source: Patient, Spouse ( present at bedside.) Exam Limitations: No Limitations - History of Present Illness Initial Comments: HPI: 59 y/o male presenting to [facility] ER complaining of abdominal pain, constipation for the past three weeks, dry mouth, and generalized weakness. Pain is worse in the right upper and lower abdominal quadrants. Has not had a BM in 2-3 weeks. Taking Oxycodone daily. Tried Miralax without relief of constipation. Has not been eating and drinking normally. reported to the HUMAN RESOURCES PROJECT MANAGER at triage that the pt had been drinking "a little." The pt is undergoing chemotherapy for metastatic esophageal cancer by Dr. Greenberg. Medical Hx: - Esophageal CA with mets to liver and kidney Review of Systems: In addition to that documented in the HPI above, the additional ROS was obtained : Constitutional- Denies fevers or chills Head- Denies vision changes ENMT- Denies sore throat CV- Denies palpitations Resp- Endorses SOB without cough or change in sputum color GI- Denies vomiting or diarrhea - Denies painful urination MSK- Denies recent trauma Skin- Denies new rashes Neuro- Denies new numbness or tingling Endocrine- Denies polyuria Heme- Denies bleeding or bruising Physical Examination: Vital signs and nursing notes reviewed. Constitutional- Thin, cachectic male in no acute distress but obvious discomfort. Found semi-fowlers on hospital stretcher. Puny appearing. Head- Normocephalic. No obvious external signs of trauma. Throat- Dry oral mucosa. Neck- Supple, trachea is midline. Cardiovascular / Chest- Tachycardic rate with regular rhythm. No murmur, rubs, clicks, or gallops. Peripheral pulses- radial pulses full. Respiratory- Breathing mildly tachypneic. Equal chest rise and fall. Clear to auscultation bilaterally. No stridor, no wheezing, no rhonchi. Gastrointestinal- abdomen is diffusely tender in all four quadrants. Abdomen is distended but soft. Noted ascites with positive fluid wave. No pulsatile masses. No overlying skin lesions or obvious signs of trauma. Neuro- Alert and oriented x4. Moving all four extremities spontaneously. Skin- Warm, dry, and intact. Multiple psoriatic lesion to lower back. Psych- Affect- appropriate. Mood- normal. Speech was non-labored, non- pressured. MDM: 59 y/o male presenting with diffuse abdominal pain Afebrile. Vitals remarkable for tachycardia without hypotension. Physical exam as described above. Pt's indwelling port accessed. D/D includes dehydration w/ worsening ascites, possible SBP vs acute hepatic failure vs occult infection. Also possible intestinal obstruction vs opiate induced constipation. Peritoneal fluid obtained. Neutrophils not significantly elevated. Low suspicion for SBP. CTAP remarkable for worsening ascites and possible new neoplastic lesions when compared to CT scan from last month. Will admit the pt for diffuse pain, worsening ascites, dehydration, and possible new metastatic lesions. 30 Oct 2019 19:44 PM Telephone discussion with HUMAN RESOURCES PROJECT MANAGER Rodolfo. Verbally appraised of the pts HPI, ED course, and current plan of management. Will admit pt to med/ surg for attending Dr. Danyell Chandler. Adriano Otto M.D., PGY2 Emergency Medicine Resident Past History - Past Medical History Allergies/Adverse Reactions: Allergies Allergy/AdvReac Type Severity Reaction Status Date / Time No Known Allergies Allergy Verified 01/31/19 18:22 Home Medications: Ambulatory Orders Pantoprazole Sodium 40 mg PO BID 04/18/19 Ramucirumab [Cyramza] 100 mg IV ASDIR 09/07/19 Simethicone 80 mg PO DAILY 09/07/19 Anemia: No Asthma: No (as child) Cancer: Yes (METASTATIC ESOPHAGEAL CANCER) Cardiac Disorders: No CVA: No COPD: No CHF: No Dementia: No Diabetes: No GI Disorders: Yes (acid reflux) Disorders: No HTN: No Hypercholesterolemia: No Liver Disease: No Seizures: No Thyroid Disease: No - Surgical History Abdominal Surgery: Yes (umbilical hernia repair) Appendectomy: No Cardiac Surgery: No Cholecystectomy: No Lung Surgery: No Neurologic Surgery: No Orthopedic Surgery: Yes (WRIST REPAIR) - Immunization History Immunization Up to Date: Yes - Psycho Social/Smoking Cessation Hx Smoking Status: No Smoking History: Never smoked Have you smoked in the past 12 months: No Number of Cigarettes Smoked Daily: 0 Information on smoking cessation initiated: No Hx Alcohol Use: No Drug/Substance Use Hx: No Substance Use Type: None Hx Substance Use Treatment: No *Physical Exam - Vital Signs Last Vital Signs Temp Pulse Resp BP Pulse Ox 97.3 F L 119 H 16 96/75 100 10/30/19 11:04 10/30/19 11:04 10/30/19 11:04 10/30/19 11:04 10/30/19 11:04 Procedures - Additional Procedures Progress: Paracentesis Procedure Note INDICATION: Ascites PROCEDURE STACKER DRIVER: Adriano Otto M.D. PGY2 ATTENDING PHYSICIAN: Dr. Kong In Attendance (Y/N) Y Ultrasound used to bernardo location: Y CONSENT: Consent was obtained from pt prior to the procedure. Indications, risks, and benefits were explained at length. PROCEDURE SUMMARY: A time-out was performed. My hands were washed immediately prior to the procedure. I wore a mask with protective eyewear and sterile gloves throughout the procedure. The area was cleansed and draped in usual sterile fashion using chlorhexidine scrub. Anesthesia was achieved with 2% lidocaine. The right lower quadrant of the abdomen was prepped and draped in a sterile fashion using chlorhexidine scrub. 2% lidocaine was used to numb the skin, soft tissue and peritoneum. The 18G needle was inserted and advanced with negative pressure until 50cc colored fluid was aspirated. Approximately 50 cc of ascitic fluid was collected and sent for laboratory analysis. The needle was removed and no leaking was noted. A bandaid was placed over the puncture wound. The patient tolerated the procedure well without any immediate complications. Estimated blood loss was <5cc. ED Treatment Course - LABORATORY CBC & Chemistry Diagram: 10/30/19 13:00 10/30/19 13:00 - RADIOLOGY Radiology Studies Ordered: Category Date Time Status ABDOMEN & PELVIS CT WITH CONTR [CT] Stat CT Scan 10/30/19 13:15 Ordered CHEST X-RAY PORTABLE* [RAD] Stat Radiology 10/30/19 13:28 Ordered Discharge - Discharge Information Problems reviewed: Yes Clinical Impression/Diagnosis: Diffuse pain, Multiple lesions of metastatic malignancy, Tachycardia Ascites Qualifiers: Ascites type: other type Qualified Code(s): R18.8 - Other ascites Condition: Stable - Admission Yes - Follow up/Referral - Patient Discharge Instructions - Post Discharge Activity
[2019-10-30] MEDS ORDERED: oxyCODONE HCL 10 MG SUSTAINED ACTING TABLET ONE (13:40)
[2019-10-30 13:43] LABS: EOS % 0.5 % (0-4.5); HEMATOCRIT 37.3 % (35.4-49); HEMOGLOBIN 11.6 GM/dL (11.7-16.9); LYMPH % 9.4 % (8-40); MCH 22.3 pg (25.7-33.7); MCHC 30.9 g/dl (32.0-35.9); MEAN CELL VOLUME 71.9 fl (80-96); MEAN PLT VOLUME 9.4 fl (7.5-11.1); MONO % 10.3 % (3.8-10.2); NEUT % 78.8 % (42.8-82.8); PLATELET COUNT 255 K/MM3 (134-434); RBC 5.19 M/mm3 (4.00-5.60); RDW 17.5 % (11.9-15.9)
[2019-10-30 14:10] LABS: ALBUMIN 2.6 g/dl (3.4-5.0); BILIRUBIN,TOTAL 1.7 mg/dL (0.2-1); BLOOD UREA NITROGEN 25.6 mg/dL (7-18); CREATININE 0.9 mg/dL (0.55-1.3); POTASSIUM 4.6 mmol/L (3.5-5.1); TOT PROT 5.8 g/dl (6.4-8.2)
[2019-10-30 14:36] LABS: VENOUS PC02 40.3 mmHg (38-52); VENOUS PH 7.41 (7.31-7.41); VENOUS PO2 < 49 mmHg (28-48)
--- NOTE | 2019-10-30 14:43 | PDOC ---
Attending Attestation - Resident Resident Name: Adriano Watt - ED Attending Attestation I have performed the following: I have examined & evaluated the patient, The case was reviewed & discussed with the resident, I agree w/resident's findings & plan, Exceptions are as noted - HPI HPI: 10/30/19 14:42 59y M hx of metastatic Esophageal Ca, GERD, HTN, presents with increase abd pain /constipation. Pt staes he has been eating less due to poorer appettite. Pt also endorses diffuse body aches. Pt denies any fever, chills, cough, hemoptysis , leg swelling. The patient's family thought the patient difficulty with short of breath earlier today. Patient is currently undergoing immunotherapy for his esophageal cancer. exam: mucus membranes dry generally weak, cachectic appearing distended abdomen no focal tendenress tachycardic lungs clear to ascultation no le edema, neg homans will obtain blood work to screen for metabolic derangement,, anemia Will obtain chest x-ray, UA to screen for occult infection Abdomen is distended likely with ascites, there is no focal tenderness - Physicial Exam PE: 11/02/19 17:13 see above - Medical Decision Making 10/30/19 18:58 The the patient's peritoneal fluid it was tapped by dr. watt under my direct supervision the results were reviewed, it does not appear to consistent with SBP. Patient's lactic acid was elevated, will recheck after hydration
[2019-10-30 15:06] LABS: INR 1.44 (0.83-1.09); PROTHROMBIN TIME (PATIENT) 17.1 SEC (9.7-13.0)
[2019-10-30 15:08] LABS: ACTIVATED PTT 54.1 SECONDS (25.2-36.5)
[2019-10-30] MEDS ORDERED: LIDOCAINE HCL 2% (20ML MULTI-DOSE VIAL) ONE (15:08)
[2019-10-30] MEDS ORDERED: METOCLOPRAMIDE HCL INJECTION 10 MG/2 ML VIAL IVPUSH ONE (16:13)
[2019-10-30] MEDS ORDERED: morphine CARPU-JECT 4 MG/1 ML DISP.SYRIN IVPUSH ONE (16:13)
[2019-10-30] MEDS ORDERED: morphine SULFATE 4 MG/ML VIAL ONE (16:25)
[2019-10-30] MEDS ORDERED: METOCLOPRAMIDE HCL INJECTION 10 MG/2 ML VIAL ONE (16:25)
[2019-10-30 16:54] LABS: MAGNESIUM 2.2 mg/dL (1.8-2.4)
[2019-10-30 17:57] LABS: PERITONEAL RBC 2187 /mm3
[2019-10-30 18:50] LABS: PERITONEAL FLUID EOSINOPHIL 1 %; PERITONEAL FLUID LYMPHOCYTE 77 %; PERITONEAL FLUID MACROPHAGE 14 %; PERITONEAL FLUID MESOTHELIAL 2 %; PERITONEAL FLUID NEUTROPHIL 6 %
[2019-10-30] MEDS ORDERED: MORPHINE SULFATE 2 MG/ML VIAL ONE (20:07)
[2019-10-30] MEDS ORDERED: MAGNESIUM CITRATE 300 ML BOTTLE ONE (20:12)
[2019-10-30] MEDS ORDERED: morphine CARPU-JECT 2 MG/1 ML DISP.SYRIN IVPUSH PRN (20:35)
[2019-10-30] MEDS ORDERED: SODIUM PHOSPHATE/NA BIPHOS 133 ML ENEMA PR ONE (20:44)
[2019-10-30] MEDS ORDERED: SENNOSIDES 8.6MG TABLET (FP) PO PRN (20:45)
[2019-10-30] MEDS ORDERED: MAGNESIUM CITRATE 300 ML BOTTLE PO ONE (21:23)
[2019-10-30] MEDS ORDERED: ENOXAPARIN NA (PORCINE) 40 MG/0.4 ML DISP.SYRIN SQ ONE (21:58)
[2019-10-30] MEDS: SODIUM CHLORIDE 1,000 ML IV SCH (22:03)
[2019-10-30] MEDS: DOCUSATE SODIUM 100 MG CAPSULE (FP) PO SCH (22:04)
[2019-10-30] MEDS: ENOXAPARIN NA (PORCINE) 40 MG/0.4 ML DISP.SYRIN SQ SCH (22:04)
--- NOTE | 2019-10-31 00:07 | HP ---
CHIEF COMPLAINT:diffuse body pain, abdominal pain, constipation, dry mouth and generalized weakness PCP: Dr. Chandler Oncologist: Dr. Greenberg HISTORY OF PRESENT ILLNESS: 59 y/o male with metastatic esophageal cancer, currently undergoing chemotherapy (last chemo treatment 2 weeks ago) who presented with complaints of diffuse body pain, abdominal pain, constipation with no bowel movement for 3 weeks, dry mouth, and generalized weakness. Abdominal pain is worse in the right upper and lower abdominal quadrants. He is taking Oxycodone daily. He reported he tried Miralax without relief of constipation. He reports he not been eating and drinking normally. ER course was notable for: CT scan of abdomen with possible new metastatic lesions present Elevated lactic acid level of 2.3 Elevated amonia 56 Ascites, tapped and fluid specimen sent for cytology Constipation, received magnesium citrate Recent Travel: no PAST MEDICAL HISTORY: metastatic esophageal cancer PAST SURGICAL HISTORY: no Social History: Smoking: Alcohol:no Drugs: no Allergies No Known Allergies Allergy (Verified 01/31/19 18:22) HOME MEDICATIONS: Home Medications Medication Instructions Recorded Pantoprazole Sodium 40 mg PO BID 04/18/19 Ramucirumab [Cyramza] 100 mg IV ASDIR 09/07/19 Simethicone 80 mg PO DAILY 09/07/19 REVIEW OF SYSTEMS CONSTITUTIONAL: Absent: fever, chills, diaphoresis, generalized weakness, malaise, loss of appetite, weight change HEENT: Absent: rhinorrhea, nasal congestion, throat pain, throat swelling, difficulty swallowing, mouth swelling, ear pain, eye pain, visual changes CARDIOVASCULAR: Absent: chest pain, syncope, palpitations, irregular heart rate, lightheadedness , peripheral edema RESPIRATORY: Absent: cough, shortness of breath, dyspnea with exertion, orthopnea, wheezing, stridor, hemoptysis GASTROINTESTINAL: Absent: abdominal pain, abdominal distension, nausea, vomiting, diarrhea, constipation, melena, hematochezia GENITOURINARY: Absent: dysuria, frequency, urgency, hesitancy, hematuria, flank pain, genital pain MUSCULOSKELETAL: Absent: myalgia, arthralgia, joint swelling, back pain, neck pain SKIN: Absent: rash, itching, pallor HEMATOLOGIC/IMMUNOLOGIC: Absent: easy bleeding, easy bruising, lymphadenopathy, frequent infections ENDOCRINE: Absent: unexplained weight gain, unexplained weight loss, heat intolerance, cold intolerance NEUROLOGIC: Absent: headache, focal weakness or paresthesias, dizziness, unsteady gait, seizure, mental status changes, bladder or bowel incontinence PSYCHIATRIC: Absent: anxiety, depression, suicidal or homicidal ideation, hallucinations. PHYSICAL EXAMINATION Vital Signs - 24 hr 10/30/19 10/30/19 11:04 20:07 Temperature 97.3 F L Pulse Rate 119 H Pulse Rate [ 94 H Left Radial] Respiratory 16 18 Rate Blood Pressure 96/75 Blood Pressure 116/67 [Right Arm] O2 Sat by Pulse 100 99 Oximetry (%) GENERAL: awake, alert, and fully oriented, appears anxious HEAD: normal EYES: pupils equal, round and reactive to light EARS, NOSE, THROAT: ears normal, nares patent NECK: normal LUNGS: breath sounds equal clear to auscultation bilaterally wheezes, and no crackles no accessory muscle use HEART: regular rate and rhythm normal S1 and S2 ABDOMEN: distended, normoactive bowel sounds no acute abdomen MUSCULOSKELETAL: normal range of motion at all joints UPPER EXTREMITIES: 2+ pulses warm, well-perfused no cyanosis LOWER EXTREMITIES: 2+ pulses warm well-perfused no peripheral edema NEUROLOGICAL:normal speech PSYCHIATRIC: cooperative SKIN: warm, dry, nail beds and lips pink Laboratory Results - last 24 hr 10/30/19 10/30/19 10/30/19 12:45 12:45 13:00 WBC 8.0 RBC 5.19 Hgb 11.6 L Hct 37.3 D MCV 71.9 L MCH 22.3 L MCHC 30.9 L RDW 17.5 H Plt Count 255 MPV 9.4 Absolute Neuts (auto) 6.3 Neutrophils % 78.8 Lymphocytes % 9.4 D Monocytes % 10.3 H Eosinophils % 0.5 D Basophils % 1.0 D Nucleated RBC % 0 PT with INR INR PTT (Actin FS) VBG pH 7.41 POC VBG pCO2 40.3 POC VBG pO2 < 49 H VBG HCO3 24.9 VBG O2 Sat (Real) 52.4 L VBG Base Excess 0.7 Sodium Potassium Chloride Carbon Dioxide Anion Gap BUN Creatinine Est GFR (CKD-EPI)AfAm Est GFR (CKD-EPI)NonAf Random Glucose Lactic Acid 2.3 H* Calcium Phosphorus Magnesium Total Bilirubin AST ALT Alkaline Phosphatase Ammonia LD Total Total Protein Albumin Lipase Peritoneal WBC Peritoneal RBC Periton Neutrophils Periton Lymphocytes Peritoneal Eosinophils Periton Mesothelial Periton Macrophages 10/30/19 10/30/19 10/30/19 13:00 13:00 13:00 WBC RBC Hgb Hct MCV MCH MCHC RDW Plt Count MPV Absolute Neuts (auto) Neutrophils % Lymphocytes % Monocytes % Eosinophils % Basophils % Nucleated RBC % PT with INR INR PTT (Actin FS) VBG pH POC VBG pCO2 POC VBG pO2 VBG HCO3 VBG O2 Sat (Real) VBG Base Excess Sodium 138 Potassium 4.6 Chloride 102 Carbon Dioxide 25 Anion Gap 11 BUN 25.6 H Creatinine 0.9 Est GFR (CKD-EPI)AfAm 107.22 Est GFR (CKD-EPI)NonAf 92.51 Random Glucose 99 Lactic Acid Calcium 9.0 Phosphorus 4.0 Magnesium 2.2 Total Bilirubin 1.7 H AST 52 H ALT 18 Alkaline Phosphatase 978 H Ammonia 56.70 H LD Total 260 H Total Protein 5.8 L Albumin 2.6 L Lipase 120 Peritoneal WBC Peritoneal RBC Periton Neutrophils Periton Lymphocytes Peritoneal Eosinophils Periton Mesothelial Periton Macrophages 10/30/19 10/30/19 13:00 16:00 WBC RBC Hgb Hct MCV MCH MCHC RDW Plt Count MPV Absolute Neuts (auto) Neutrophils % Lymphocytes % Monocytes % Eosinophils % Basophils % Nucleated RBC % PT with INR 17.10 H INR 1.44 H PTT (Actin FS) 54.1 H VBG pH POC VBG pCO2 POC VBG pO2 VBG HCO3 VBG O2 Sat (Real) VBG Base Excess Sodium Potassium Chloride Carbon Dioxide Anion Gap BUN Creatinine Est GFR (CKD-EPI)AfAm Est GFR (CKD-EPI)NonAf Random Glucose Lactic Acid Calcium Phosphorus Magnesium Total Bilirubin AST ALT Alkaline Phosphatase Ammonia LD Total Total Protein Albumin Lipase Peritoneal WBC 223 Peritoneal RBC 2187 Periton Neutrophils 6 Periton Lymphocytes 77 Peritoneal Eosinophils 1 Periton Mesothelial 2 Periton Macrophages 14 ASSESSMENT/PLAN: 59 year old male with metastatic esophageal cancer, currently undergoing chemotherapy(last chemo treatment 2 weeks ago) who presented with complaints of diffuse body pain, abdominal pain, constipation with no bowel movement for 3 weeks, dry mouth, and generalized weakness. He is being admitted for further medical and oncological evaluation. #1 Metastatic Esophageal Cancer Currently on chemotherapy , CT scan with possible new metastatic lesions Oncology consulted- Dr. Greenberg Continue with pain management with IV morphine q4hr as needed #2 Abdominal Pain/Constipation Likely related to Opiate Use Received magnesium citrate Enema X 1 tonight senna and colace #3 Ascites tapped and fluid culture sent #4 Hyperamonemia Amonia level 56, no encephalopathy noted repeat amonia level in am #5 Elevated Lactic Acid Received LR repeat level in am DVT Prophylaxsis lovenox daily SCD's FEN no IV fluids monitor BMP daily regular diet Visit type - Emergency Visit Emergency Visit: Yes ED Registration Date: 10/30/19 Care time: The patient presented to the Emergency Department on the above date and was hospitalized for further evaluation of their emergent condition. - New Patient This patient is new to me today: Yes Date on this admission: 10/31/19 - Critical Care Critical Care patient: No
[2019-10-31] MEDS: METOCLOPRAMIDE HCL INJECTION 10 MG/2 ML VIAL IVPUSH PRN ×3 (02:37→18:17)
[2019-10-31 03:05] VITALS: BMI 22.5
[2019-10-31] MEDS: DOCUSATE SODIUM 100 MG CAPSULE (FP) PO SCH ×3 (06:01→22:48)
[2019-10-31 07:42] LABS: HEMATOCRIT 36.7 % (35.4-49); HEMOGLOBIN 11.5 GM/dL (11.7-16.9); LYMPH % 10.3 % (8-40); MCH 22.6 pg (25.7-33.7); MCHC 31.2 g/dl (32.0-35.9); MEAN CELL VOLUME 72.4 fl (80-96); MONO % 10.9 % (3.8-10.2); NEUT % 76.8 % (42.8-82.8); PLATELET COUNT 212 K/MM3 (134-434); RBC 5.07 M/mm3 (4.00-5.60); RDW 17.8 % (11.9-15.9); WHITE BLOOD COUNT 4.9 K/mm3 (4.0-10.0)
[2019-10-31 08:11] LABS: BLOOD UREA NITROGEN 21.4 mg/dL (7-18); CALCIUM 8.6 mg/dL (8.5-10.1); CREATININE 0.7 mg/dL (0.55-1.3); POTASSIUM 4.5 mmol/L (3.5-5.1)
--- NOTE | 2019-10-31 09:41 | EKG ---
Test Reason : Blood Pressure : / mmHG Vent. Rate : 099 BPM Atrial Rate : 099 BPM P-R Int : 140 ms QRS Dur : 086 ms QT Int : 380 ms P-R-T Axes : 050 -13 024 degrees QTc Int : 487 ms NORMAL SINUS RHYTHM LOW VOLTAGE QRS INFERIOR INFARCT (CITED ON OR BEFORE 07-NOV-2013) ANTEROLATERAL INFARCT , AGE UNDETERMINED ABNORMAL ECG WHEN COMPARED WITH ECG OF 07-NOV-2013 10:23, QRS VOLTAGE HAS DECREASED ANTERIOR INFARCT IS NOW PRESENT ANTEROLATERAL INFARCT IS NOW PRESENT Confirmed by Jorge Barton MD ([id number]) on 10/31/2019 9:40:45 AM Referred By: Confirmed By:Jorge Barton MD
[2019-10-31] MEDS ORDERED: SENNOSIDES 8.6MG TABLET (FP) PO SCH (10:00)
[2019-10-31] MEDS: ENOXAPARIN NA (PORCINE) 40 MG/0.4 ML DISP.SYRIN SQ SCH (10:10)
[2019-10-31] MEDS: PANTOPRAZOLE 40 MG TABLET PO SCH ×2 (10:11→22:48)
[2019-10-31] MEDS: MORPHINE SULFATE 2 MG/ML VIAL IVPUSH PRN ×2 (11:29→16:27)
--- NOTE | 2019-10-31 12:37 | PN ---
Progress Note (short form) - Note Progress Note: Events noted he had a good bowel movement yesterday tolerating clears pain is better controlled no nausea Vital Signs - 24 hr 10/30/19 10/31/19 10/31/19 20:07 00:23 00:53 Temperature 97.4 F L Pulse Rate Pulse Rate [ 94 H 98 H Left Radial] Respiratory 18 20 18 Rate Blood Pressure Blood Pressure 116/67 107/68 [Right Arm] O2 Sat by Pulse 99 98 Oximetry (%) 10/31/19 10/31/19 02:28 05:53 Temperature 98 F 98.0 F Pulse Rate 90 77 Pulse Rate [ Left Radial] Respiratory 18 100 H Rate Blood Pressure 124/76 102/69 Blood Pressure [Right Arm] O2 Sat by Pulse Oximetry (%) Current Medications Generic Name Dose Route Start Last Admin Trade Name Freq PRN Reason Stop Dose Admin Docusate Sodium 100 mg 10/30/19 22:00 10/31/19 06:01 Colace - PO 100 mg TID NILAY Administration Enoxaparin Sodium 40 mg 10/30/19 21:00 10/31/19 10:10 Lovenox - SQ 40 mg DAILY NILAY Administration Sodium Chloride 1,000 mls @ 75 mls/hr 10/30/19 20:45 10/30/19 22:03 Normal Saline - IV 75 mls/hr ASDIR NILAY Administration Metoclopramide HCl 10 mg 10/31/19 02:30 10/31/19 10:11 Reglan Injection - IVPUSH 10 mg Q6H PRN Administration NAUSEA AND/OR VOMITING Morphine Sulfate 2 mg 10/30/19 21:13 10/31/19 11:29 Morphine Sulfate IVPUSH 2 mg Q4H PRN Administration PAIN LEVEL 7 - 10 Pantoprazole Sodium 40 mg 10/31/19 10:00 10/31/19 10:11 Protonix - PO 40 mg BID NILAY Administration Senna 1 tab 10/31/19 10:00 10/31/19 10:11 Senna - PO 1 tab BID NILAY Administration Laboratory Results - last 24 hr 10/30/19 10/30/19 10/30/19 12:45 12:45 13:00 WBC 8.0 RBC 5.19 Hgb 11.6 L Hct 37.3 D MCV 71.9 L MCH 22.3 L MCHC 30.9 L RDW 17.5 H Plt Count 255 MPV 9.4 Absolute Neuts (auto) 6.3 Neutrophils % 78.8 Lymphocytes % 9.4 D Monocytes % 10.3 H Eosinophils % 0.5 D Basophils % 1.0 D Nucleated RBC % 0 PT with INR INR PTT (Actin FS) VBG pH 7.41 POC VBG pCO2 40.3 POC VBG pO2 < 49 H VBG HCO3 24.9 VBG O2 Sat (Real) 52.4 L VBG Base Excess 0.7 Sodium Potassium Chloride Carbon Dioxide Anion Gap BUN Creatinine Est GFR (CKD-EPI)AfAm Est GFR (CKD-EPI)NonAf Random Glucose Lactic Acid 2.3 H* Calcium Phosphorus Magnesium Total Bilirubin AST ALT Alkaline Phosphatase Ammonia LD Total Total Protein Albumin Lipase Peritoneal WBC Peritoneal RBC Periton Neutrophils Periton Lymphocytes Peritoneal Eosinophils Periton Mesothelial Periton Macrophages 10/30/19 10/30/19 10/30/19 13:00 13:00 13:00 WBC RBC Hgb Hct MCV MCH MCHC RDW Plt Count MPV Absolute Neuts (auto) Neutrophils % Lymphocytes % Monocytes % Eosinophils % Basophils % Nucleated RBC % PT with INR INR PTT (Actin FS) VBG pH POC VBG pCO2 POC VBG pO2 VBG HCO3 VBG O2 Sat (Real) VBG Base Excess Sodium 138 Potassium 4.6 Chloride 102 Carbon Dioxide 25 Anion Gap 11 BUN 25.6 H Creatinine 0.9 Est GFR (CKD-EPI)AfAm 107.22 Est GFR (CKD-EPI)NonAf 92.51 Random Glucose 99 Lactic Acid Calcium 9.0 Phosphorus 4.0 Magnesium 2.2 Total Bilirubin 1.7 H AST 52 H ALT 18 Alkaline Phosphatase 978 H Ammonia 56.70 H LD Total 260 H Total Protein 5.8 L Albumin 2.6 L Lipase 120 Peritoneal WBC Peritoneal RBC Periton Neutrophils Periton Lymphocytes Peritoneal Eosinophils Periton Mesothelial Periton Macrophages 10/30/19 10/30/19 10/31/19 13:00 16:00 06:00 WBC RBC Hgb Hct MCV MCH MCHC RDW Plt Count MPV Absolute Neuts (auto) Neutrophils % Lymphocytes % Monocytes % Eosinophils % Basophils % Nucleated RBC % PT with INR 17.10 H INR 1.44 H PTT (Actin FS) 54.1 H VBG pH POC VBG pCO2 POC VBG pO2 VBG HCO3 VBG O2 Sat (Real) VBG Base Excess Sodium Potassium Chloride Carbon Dioxide Anion Gap BUN Creatinine Est GFR (CKD-EPI)AfAm Est GFR (CKD-EPI)NonAf Random Glucose Lactic Acid 1.9 Calcium Phosphorus Magnesium Total Bilirubin AST ALT Alkaline Phosphatase Ammonia LD Total Total Protein Albumin Lipase Peritoneal WBC 223 Peritoneal RBC 2187 Periton Neutrophils 6 Periton Lymphocytes 77 Peritoneal Eosinophils 1 Periton Mesothelial 2 Periton Macrophages 14 10/31/19 10/31/19 10/31/19 07:10 07:10 07:50 WBC 4.9 RBC 5.07 Hgb 11.5 L Hct 36.7 MCV 72.4 L MCH 22.6 L MCHC 31.2 L RDW 17.8 H Plt Count 212 MPV 9.0 Absolute Neuts (auto) 3.8 Neutrophils % 76.8 Lymphocytes % 10.3 Monocytes % 10.9 H Eosinophils % 1.0 D Basophils % 1.0 Nucleated RBC % 0 PT with INR INR PTT (Actin FS) VBG pH POC VBG pCO2 POC VBG pO2 VBG HCO3 VBG O2 Sat (Real) VBG Base Excess Sodium 139 Potassium 4.5 Chloride 103 Carbon Dioxide 27 Anion Gap 9 BUN 21.4 H Creatinine 0.7 Est GFR (CKD-EPI)AfAm 118.88 Est GFR (CKD-EPI)NonAf 102.57 Random Glucose 87 Lactic Acid Calcium 8.6 Phosphorus Magnesium Total Bilirubin AST ALT Alkaline Phosphatase Ammonia 60.30 H LD Total Total Protein Albumin Lipase Peritoneal WBC Peritoneal RBC Periton Neutrophils Periton Lymphocytes Peritoneal Eosinophils Periton Mesothelial Periton Macrophages S1 S2 RRR Lungs decreased Abd -- soft, ascites, NT' no edema PLAN advance diet oncology eval CT scans reviewed-- has new lesions peritoneal worsening liver mets spoke with Problem List - Problems (1) Esophageal cancer Code(s): C15.9 - MALIGNANT NEOPLASM OF ESOPHAGUS, UNSPECIFIED (2) Ascites Code(s): R18.8 - OTHER ASCITES Qualifiers: Ascites type: other type Qualified Code(s): R18.8 - Other ascites (3) Diffuse pain Code(s): R52 - PAIN, UNSPECIFIED (4) Multiple lesions of metastatic malignancy Code(s): C79.9 - SECONDARY MALIGNANT NEOPLASM OF UNSPECIFIED SITE
[2019-10-31] MEDS: SODIUM CHLORIDE 1,000 ML IV SCH ×2 (16:28→22:48)
--- NOTE | 2019-10-31 18:45 | PN ---
Progress Note (short form) - Note Progress Note: Patient seen and examined Metastatic esophageal ca - s/p surgery ,multiple lines of chemotherapy, recently switched to imunotherapy with pempbrolizumab. Has progressed on treatments with taxol, carboplatinum, FOLFOX chemotherapy. Presents with increasing ascites, worsening liver mets, and severe constipation. Has elevated ammonia level. Last Vital Signs Temp Pulse Resp BP Pulse Ox 98.4 F 116 H 18 119/77 98 10/31/19 14:01 10/31/19 14:01 10/31/19 14:01 10/31/19 14:01 10/31/19 00:23 HEENT: STUART, EOM Intact Oropharynx: No thrush, No mucositis Cor: RSR, No murmurs, No gallops Lungs: decreased breath sounds bilaterally Abd: ascites Ext:No significant edema Skin: No rashes, Integument intact CBC, BMP 10/31/19 07:10 10/31/19 07:10 Abnormal Lab Results 10/30/19 10/31/19 10/31/19 13:00 07:10 07:10 Hgb 11.5 L MCV 72.4 L MCH 22.6 L MCHC 31.2 L RDW 17.8 H Monocytes % 10.9 H BUN 25.6 H 21.4 H Total Bilirubin 1.7 H AST 52 H Alkaline Phosphatase 978 H Ammonia LD Total 260 H Total Protein 5.8 L Albumin 2.6 L 10/31/19 07:50 Hgb MCV MCH MCHC RDW Monocytes % BUN Total Bilirubin AST Alkaline Phosphatase Ammonia 60.30 H LD Total Total Protein Albumin Current Medications Generic Name Dose Route Start Last Admin Trade Name Freq PRN Reason Stop Dose Admin Docusate Sodium 100 mg 10/30/19 22:00 10/31/19 16:53 Colace - PO 100 mg TID NILAY Administration Enoxaparin Sodium 40 mg 10/30/19 21:00 10/31/19 10:10 Lovenox - SQ 40 mg DAILY NILAY Administration Sodium Chloride 1,000 mls @ 75 mls/hr 10/30/19 20:45 10/31/19 16:28 Normal Saline - IV 75 mls/hr ASDIR NILAY Administration Metoclopramide HCl 10 mg 10/31/19 02:30 10/31/19 18:17 Reglan Injection - IVPUSH 10 mg Q6H PRN Administration NAUSEA AND/OR VOMITING Morphine Sulfate 2 mg 10/30/19 21:13 10/31/19 16:27 Morphine Sulfate IVPUSH 2 mg Q4H PRN Administration PAIN LEVEL 7 - 10 Pantoprazole Sodium 40 mg 10/31/19 10:00 10/31/19 10:11 Protonix - PO 40 mg BID NILAY Administration Senna 1 tab 10/31/19 10:00 10/31/19 10:11 Senna - PO 1 tab BID NILAY Administration Impression: Metastaic esophageal ca Liver mets Ascites Costipation Elevated NH3 Plan Begin Morphine sulfate short acting 10 mg p.o. q 4 h not prn Begin lactulose
[2019-10-31] MEDS ORDERED: LACTULOSE 20 GM/30 ML UDC (FOR ORAL USE ONLY) PO PRN (18:46)
[2019-10-31] MEDS ORDERED: ONDANSETRON 4 MG/2 ML VIAL IVPB PRN (18:49)
[2019-10-31] MEDS: morphine SULFATE 10 MG/5 ML UNIT-DOSE CUP PO SCH (20:30)
[2019-11-01] MEDS: morphine SULFATE 10 MG/5 ML UNIT-DOSE CUP PO SCH ×7 (02:00→21:51)
[2019-11-01] MEDS: DOCUSATE SODIUM 100 MG CAPSULE (FP) PO SCH ×3 (06:27→21:51)
[2019-11-01] MEDS: PANTOPRAZOLE 40 MG TABLET PO SCH ×2 (09:16→21:52)
[2019-11-01] MEDS: ENOXAPARIN NA (PORCINE) 40 MG/0.4 ML DISP.SYRIN SQ SCH (09:16)
[2019-11-01] MEDS: SODIUM CHLORIDE 1,000 ML IV SCH (09:17)
--- NOTE | 2019-11-01 11:41 | PN ---
Progress Note (short form) - Note Progress Note: Events noted he had a good bowel movement yesterday tolerating clears pain is better controlled no nausea at bedside Vital Signs - 24 hr 10/31/19 10/31/19 10/31/19 14:01 18:48 21:00 Temperature 98.4 F 98.3 F Pulse Rate 116 H 115 H Respiratory 18 18 Rate Blood Pressure 119/77 105/68 O2 Sat by Pulse Oximetry (%) 11/01/19 11/01/19 11/01/19 00:00 05:50 10:00 Temperature 98.1 F 98.2 F 98.0 F Pulse Rate 104 H 96 H 98 H Respiratory 18 20 20 Rate Blood Pressure 123/89 115/72 105/67 O2 Sat by Pulse 95 Oximetry (%) Current Medications Generic Name Dose Route Start Last Admin Trade Name Freq PRN Reason Stop Dose Admin Docusate Sodium 100 mg 10/30/19 22:00 11/01/19 06:27 Colace - PO 100 mg TID NILAY Administration Enoxaparin Sodium 40 mg 10/30/19 21:00 11/01/19 09:16 Lovenox - SQ 40 mg DAILY NILAY Administration Sodium Chloride 1,000 mls @ 75 mls/hr 10/30/19 20:45 11/01/19 09:17 Normal Saline - IV 75 mls/hr ASDIR NILAY Administration Lactulose 20 gm 10/31/19 18:46 11/01/19 09:44 Cephulac (Oral Use) PO 20 gm Q6H PRN Administration CONSTIPATION Metoclopramide HCl 10 mg 10/31/19 02:30 10/31/19 18:17 Reglan Injection - IVPUSH 10 mg Q6H PRN Administration NAUSEA AND/OR VOMITING Morphine Sulfate 2 mg 10/30/19 21:13 10/31/19 16:27 Morphine Sulfate IVPUSH 2 mg Q4H PRN Administration PAIN LEVEL 7 - 10 Morphine Sulfate 10 mg 10/31/19 19:30 11/01/19 09:16 Morphine 10 Mg/5 Ml Liquid PO 10 mg Q4HPO NILAY Administration Ondansetron HCl 8 mg 10/31/19 18:49 Zofran Injection IVPB Q8H PRN NAUSEA Pantoprazole Sodium 40 mg 10/31/19 10:00 11/01/19 09:16 Protonix - PO 40 mg BID NILAY Administration Lungs decreased Abd -- soft, ascites, NT' no edema PLAN advance diet-->soft diet oncology eval noted CT scans reviewed-- has new lesions peritoneal worsening liver mets pain control adequate dc planning Problem List - Problems (1) Esophageal cancer Code(s): C15.9 - MALIGNANT NEOPLASM OF ESOPHAGUS, UNSPECIFIED (2) Ascites Code(s): R18.8 - OTHER ASCITES Qualifiers: Ascites type: other type Qualified Code(s): R18.8 - Other ascites (3) Diffuse pain Code(s): R52 - PAIN, UNSPECIFIED (4) Multiple lesions of metastatic malignancy Code(s): C79.9 - SECONDARY MALIGNANT NEOPLASM OF UNSPECIFIED SITE
[2019-11-02] MEDS: morphine SULFATE 10 MG/5 ML UNIT-DOSE CUP PO SCH ×3 (01:45→10:49)
[2019-11-02] MEDS: DOCUSATE SODIUM 100 MG CAPSULE (FP) PO SCH (05:40)
[2019-11-02] MEDS: SODIUM CHLORIDE 1,000 ML IV SCH (06:58)
[2019-11-02] MEDS: ENOXAPARIN NA (PORCINE) 40 MG/0.4 ML DISP.SYRIN SQ SCH (10:50)
[2019-11-02] MEDS: PANTOPRAZOLE 40 MG TABLET PO SCH (10:50)
--- NOTE | 2019-11-02 11:51 | DS ---
Physical Examination Vital Signs: Vital Signs Temperature 97.6 F 11/02/19 05:27 Pulse Rate 106 H 11/02/19 05:27 Respiratory Rate 20 11/02/19 05:27 Blood Pressure 110/79 11/02/19 05:27 O2 Sat by Pulse Oximetry (%) 96 11/01/19 21:00 Constitutional: Yes: No Distress, Calm Cardiovascular: Yes: Regular Rate and Rhythm Respiratory: Yes: CTA Bilaterally Gastrointestinal: Yes: Normal Bowel Sounds, Soft, Ascites. No: Tenderness Edema: No Labs: CBC, BMP 10/31/19 07:10 10/31/19 07:10 Discharge Summary Problems reviewed: Yes Reason For Visit: DIFFUSE PAIN Current Active Problems Ascites (Acute) Diffuse pain (Acute) Esophageal cancer (Acute) Multiple lesions of metastatic malignancy (Acute) Tachycardia (Acute) Hospital Course: admitted for diffuse intractable abdominal pain Currently on chemotherapy for esophageal cancer CT abdomen and pelvis shows new peritoneal mets and worsening of liver lesions severe constipationbetter on lactulose. Severe constipation due to opioids. Pain is better controlled on morphine sulfate. Patient is eating better, tolerating soft foods. Stable for discharge home,. Follow with oncologist in a week Condition: Stable - Instructions Referrals: Guille Chandler MD [Primary Care Provider] - - Home Medications Comprehensive Discharge Medication List: Ambulatory Orders Pantoprazole Sodium 40 mg PO BID 04/18/19 Ramucirumab [Cyramza] 100 mg IV ASDIR 09/07/19 Simethicone 80 mg PO DAILY 09/07/19 Lactulose (Oral Use) [Cephulac -] 20 gm PO Q6H PRN #100 ml 11/02/19 Morphine 10 mg/5 ml Liquid [Morphine 10 mg/5 mL Liquid -] 10 mg PO Q4HPO #30 ml MDD 4 11/02/19 Ondansetron [Zofran *Odt*] 8 mg SL BID #60 od.tablet 11/02/19
[2019-11-02 13:02] VITALS: BP 119/78; PULSE 98; TEMP 98.1
== END 2019-11-02 16:39 | disposition home or self-care (01) | DRG 229 ==
LOC: JER 10:55 → JERBED 19:30 → J6S 10-31 01:37
PROVIDERS: ADMIT Internal Medicine; ATTEND Internal Medicine
PROC: 0W9G3ZX Drainage of Peritoneal Cavity, Percutaneous Approach, Diagnostic (ICD-10-PCS; principal; 2019-10-30)
DX: C78.6 Secondary malignant neoplasm of retroperitoneum and peritoneum (principal); C15.9 Malignant neoplasm of esophagus, unspecified; C78.7 Secondary malignant neoplasm of liver and intrahepatic bile duct; R06.02 Shortness of breath; R00.0 Tachycardia, unspecified; R64 Cachexia; Z68.22 Body mass index [BMI] 22.0-22.9, adult; K59.03 Drug induced constipation; T40.605A Adverse effect of unspecified narcotics, initial encounter; R18.8 Other ascites; K21.9 Gastro-esophageal reflux disease without esophagitis; I95.9 Hypotension, unspecified
CPT/HCPCS: 36415; 71045-TC-FY; 74177-TC; 80048; 80053; 82140; 82803; 83605; 83615; 83690; 83735; 84100; 85025; 85610; 85730; 87040; 87070; 87075; 87205; 89051; 93005; 93010; 99285-25; J7030; Q9967

== ENCOUNTER 2019-11-15 13:23 | Emergency (ER) | payer OTHER ==
[2019-11-15 13:49] VITALS: TEMP 98.4; BMI 24.1
[2019-11-15] MEDS ORDERED: morphine CARPU-JECT 2 MG/1 ML DISP.SYRIN IVPUSH ONE (14:05)
--- NOTE | 2019-11-15 14:12 | PDOC ---
History of Present Illness - General Chief Complaint: Blood Pressure Problem Stated Complaint: REVISIT Time Seen by Provider: 11/15/19 13:41 - History of Present Illness Initial Comments: 11/15/19 14:19 59 y.o. M PMH esophageal CA stage IV w/ mets, psoriasis presenting s/p 5.7L paracentesis by IR today for generalized abdominal pain. Patient became hypotensive post paracentesis, now c/o severe R sided abdominal and back pain. Patient missed his home morphine dose today, ormally takes morphine liquid PO 10mg/5mL. Past History - Past Medical History Allergies/Adverse Reactions: Allergies Allergy/AdvReac Type Severity Reaction Status Date / Time No Known Allergies Allergy Verified 11/15/19 15:05 Home Medications: Ambulatory Orders Pantoprazole Sodium 40 mg PO BID 04/18/19 Ramucirumab [Cyramza] 100 mg IV ASDIR 09/07/19 Simethicone 80 mg PO DAILY 09/07/19 Lactulose (Oral Use) [Cephulac -] 20 gm PO Q6H PRN #100 ml 11/02/19 Morphine 10 mg/5 ml Liquid [Morphine 10 mg/5 mL Liquid -] 10 mg PO Q4H #200 ml MDD 5 11/02/19 Morphine 10 mg/5 ml Liquid [Morphine 10 mg/5 mL Liquid -] 10 mg PO Q4H #60 ml MDD 4 11/02/19 Ondansetron [Zofran *Odt*] 8 mg SL BID #60 od.tablet 11/02/19 Anemia: No Asthma: No (as child) Cancer: Yes (METASTATIC ESOPHAGEAL CANCER) Cardiac Disorders: No CVA: No COPD: No CHF: No Dementia: No Diabetes: No GI Disorders: Yes (acid reflux) Disorders: No HTN: No Hypercholesterolemia: No Liver Disease: No Seizures: No Thyroid Disease: No - Surgical History Abdominal Surgery: Yes (umbilical hernia repair) Appendectomy: No Cardiac Surgery: No Cholecystectomy: No Lung Surgery: No Neurologic Surgery: No Orthopedic Surgery: Yes (WRIST REPAIR) - Immunization History Immunization Up to Date: Yes - Psycho Social/Smoking Cessation Hx Smoking Status: No Smoking History: Never smoked Have you smoked in the past 12 months: No Number of Cigarettes Smoked Daily: 0 Hx Alcohol Use: No Drug/Substance Use Hx: No Substance Use Type: None Hx Substance Use Treatment: No Review of Systems - Review of Systems Comments:: 11/15/19 14:14 GENERAL/CONSTITUTIONAL: + generalized weakness HEAD, EYES, EARS, NOSE AND THROAT: No change in vision. No change in hearing. CARDIOVASCULAR: No chest pain or shortness of breath. RESPIRATORY: Denies cough GASTROINTESTINAL: Diffuse abdominal pain R>L GENITOURINARY: No dysuria, frequency, or change in urination. MUSCULOSKELETAL: No joint or muscle swelling or pain. No neck or back pain. SKIN: No rash NEUROLOGIC: No headache, vertigo, loss of consciousness, or change in strength/sensation. *Physical Exam - Vital Signs Last Vital Signs Temp Pulse Resp BP Pulse Ox 98.4 F 111 H 21 H 100/70 100 11/15/19 13:35 11/15/19 13:35 11/15/19 13:35 11/15/19 13:35 11/15/19 13:35 - Physical Exam 11/15/19 14:17 GENERAL: Thin male. AOx3. In distress 2/2 pain. HEENT: No signs of trauma, normocephalic, atraumatic. Conjunctiva clear LUNGS: clear to auscultation bilaterally. HEART: Tachycardic, normal S1 and S2, no murmurs appreciated, peripheral pulses normal and equal bilaterally. ABDOMEN: Soft. TTP RLQ-- s/p paracentesis w/ dressing in place to RLQ dressing is c/d/i EXTREMITIES: Normal inspection Medical Decision Making - Medical Decision Making 11/15/19 15:27 The patient states he does not wish to be further worked up for his pain as he knows it is due to his CA metastasis and would prefer to just receive his home dose of morphine and go home to rest. Patient's pain significantly improved s/p home dose of 10mg/5mL PO morphine. Feels ok to go home. His will be picking him up and agrees with plan to go home. Discharge - Discharge Information Problems reviewed: Yes Clinical Impression/Diagnosis: Diffuse pain, Multiple lesions of metastatic malignancy Condition: Fair Disposition: HOME - Admission No - Follow up/Referral Referrals: Guille Chandler MD [Primary Care Provider] - - Patient Discharge Instructions Additional Instructions: You presented to the Emergency Department with abdominal pain after you had a large amount of fluid removed from your abdomen. You were treated with your home dose of pain medication with significant improvement of your pain. Please return to the ED if you have any worsening pain or symptoms. - Post Discharge Activity
[2019-11-15] MEDS ORDERED: morphine SULFATE 10 MG/5 ML UNIT-DOSE CUP PO ONE (14:15)
--- NOTE | 2019-11-15 14:36 | PDOC ---
Documentation entered by Levy Luz SCRIBE, acting as scribe for Kali Gonsalez MD. Kali Gonsalez MD: This documentation has been prepared by the Sukh waggoner Xhesika, SCRIBE, under my direction and personally reviewed by me in its entirety. I confirm that the documentation accurately reflects all work, treatment, procedures, and medical decision making performed by me. Attending Attestation - Resident Resident Name: JerPooja - ED Attending Attestation I have performed the following: I have examined & evaluated the patient, The case was reviewed & discussed with the resident, I agree w/resident's findings & plan, Exceptions are as noted - HPI HPI: 11/15/19 14:28 The patient is a 59 year old male with a significant PMH of stage IV Esophageal Ca, GERD, HTN who presents to the emergency department for hypertension. The patient states he was undergoing paracentesis with interventional radiology and became hypotensive prompting his arrival to the ED. Allergies: NKDA - Physicial Exam PE: 11/15/19 14:34 Patient is awake and alert, cachectic, frail appearing, in moderate distress Normocephalic and atraumatic PERRLA, EOMI Conjunctiva pale CTA RRR, mildly tachycardic Abdomen is soft, nondistended, minimal right lower quadrant tenderness with dressing in place noted - Medical Decision Making 11/15/19 14:35 Patient is a frail-appearing 59-year-old male with history of stage IV esophageal CA who was undergoing paracentesis when he became hypotensive. In the ER, patient is awake and alert, afebrile, mildly tachycardic. Patient is well aware of severity of his condition, does not wish any further testing or interventions. Patient is requesting oral pain medication only and wishes to be discharged. Given the terminal nature of the patient's condition, will prescribe p.o. morphine. Will discharge.
[2019-11-15] MEDS ORDERED: morphine SULFATE 10 MG/5 ML UNIT-DOSE CUP ONE (14:40)
[2019-11-15 15:01] VITALS: BP 104/77; PULSE 115
== END 2019-11-15 16:41 | disposition home or self-care (01) ==
LOC: JER 13:23
PROC: 3E033NZ Introduction of Analgesics, Hypnotics, Sedatives into Peripheral Vein, Percutaneous Approach (ICD-10-PCS; principal; 2019-11-15)
DX: R52 Pain, unspecified (principal); C79.9 Secondary malignant neoplasm of unspecified site; Z85.01 Personal history of malignant neoplasm of esophagus; C15.9 Malignant neoplasm of esophagus, unspecified; K21.9 Gastro-esophageal reflux disease without esophagitis
CPT/HCPCS: 96374; 99283-25